=== PATIENT | female | born 1960 | race Caucasian/White ===

== ENCOUNTER 2025-02-19 10:01 | Outpatient (AMB) | payer OTHER, SELFPAY ==
[2025-02-19 10:06] VITALS: BMI 20.7
--- NOTE | 2025-02-19 10:06 | A.SPINEOV_ITS ---
Vital Signs 02/19/25 10:06 Height 5 ft 2.5 in Weight 115 lb BMI 20.7 Intake Visit Reasons: LBP down left side Intake Note: Ms. Fritz is here today c/o Low back pain that radiates down the left leg. Reserves Clerk Required: No Allergies mollusks Allergy (Severe, Verified 02/19/25 10:08) Stomach Upset Physical Exam Vital Signs: BMI result Body Mass Index 20.7 Assessment & Plan Assessment & Plan (1) Synovial cyst of lumbar facet joint: Code(s): M71.38 - Other bursal cyst, other site Category: Medical (2) Lumbar radiculopathy: Code(s): M54.16 - Radiculopathy, lumbar region Category: Medical Plan Dear colleague Thank you for referring Maggie Fritz to the office today with a chief complaint of back pain. HPI: This 64-year-old female complains of predominantly left-sided back pain and bilateral hip pain with the left is more affected than the right side. She wakes up several times a night with hip pain. Gardening biking and heavy housework increases the pain. Walking makes the symptoms better. The pain has radiated down her left leg to the top of her foot several times. The following conservative treatment options were tried without success antiinflammatories, tylenol, p physical therapy and chiropractic therapy PMH: GERD Medications: For oxygen, famotidine, as omeprazole, amitriptyline Allergies: NKDA Social history: Nonsmoker Physical Exam: Height 5'3 weight 115 lb. Straight leg raise is negative. SI provocative tests are negative. No strength and sensation. Radiological Studies: MRI done at [facility] on 01/12/2025 shows moderate L3-4 spinal stenosis and a L4-5 synovial cyst compressing the left L5 nerve root Impression/Plan: I do think this patient is symptomatic from a synovial cyst compressing the L5 nerve root. I can not explain the right-sided pain although this is less intense. She is not symptomatic from the radiological spinal stenosis at L3-4. I would like to refer for a an L5 nerve block to Dr. Goodrich . A positive result would help us in making the diagnosis. Negative result does not rule out that she is symptomatic from the L5 nerve root compression. She will return 3 weeks following the injection. Thank you for allowing me to participate in your patients care. total time spent was 50 minutes in counseling ,coordination of plan, personal review of imaging, surgical decision making and subsequent plan Jc Juarez MD, PhD Spine Fellowship Trained Neurosurgeon Director, [facility] [place] [facility] Orders: Referrals Pain Management Referral M54.16 - Radiculopathy, lumbar region, M71.38 - Other bursal cyst, other site Coding Level of Care Code New Pt Level 4 (37711) Diagnoses Synovial cyst of lumbar facet joint M71.38 Lumbar radiculopathy M54.16
--- OUTSIDE RECORDS SUMMARY | 2025-02-19 11:19 | XMS_ITS | Encounter Summary ---
Author Organization [facility] Address [address] [facility] [address] [place] [address] Phone Care Team Providers Care Manager Of It Name Role Phone Rhiannon Low Carole STUDENT SUCCESS ADVISOR Unavailable [phone] Helena Lobo SCANNING COORDINATOR Unavailable [phone] Marina Cavanaugh ELEMENTARY ART TEACHER Unavailable [phone] Angélica Salgado MD Unavailable [phone] [place] Swanson DO Primary Care Provider [phone] Encounter Details Date Type Department Care Team (Late st Contact Info) Description 10/24/2022 Procedure Pass [facility] Endoscopy Admitting Dept Virtual Department [address] [place] [address] [id number] Social History Tobacco Use Types Packs/Day Years Used Date Smoking Tobacco: Never Smokeless Tobacco: Never Alcohol Use Standard Drinks/Week Comments Not Currently 0 (1 standard drink = 0.6 oz pur e alcohol) Child or Family Care Answer Date Record ed Do you have problems with on e of the following making it difficult for you to work, study, or receive health care? No 09/21/2021 Education Answer Date Recorded Are you interested in help w ith more adult education (for example, completing high school, GED, job training, learning the Upper Sorbian language, technical skills, or developing parenting skills)? No 09/21/2021 Food Answer Date Recorded Within the past 6 months we worried whether our food would run out before we got money to buy more. Never True 09/21/2021 Within the past 6 months the food we bought just didn't last and we didn't have enough money to get more. Never True Residential Stability Answer Date Recor ded What is your housing situation today? I have more barnhart 09/21/2021 How many times have you move d in the past 12 months? Zero (I did not move) 09/21/2021 Paying for Meds Answer Date Recorded Do you have trouble paying for medicines? No 09/21/2021 Paying Utility Bills Answer Date Record ed Do you have trouble paying your heating or elect ricity bill? No 09/21/2021 Transportation Answer Date Recorded Has the lack of transportati on kept you from medical appointments or from getting medications? No 09/21/2021 Unemployment Answer Date Recorded Are you currently unemployed or working on a part-time or temporary basis, and looking for work? 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 Not on file Not on file Not on file documented as of this encounter Plan of Treatment Upcoming Encounters Date Type Department Care Team (Late st Contact Info) Description 12/09/2024 Procedure Pass [address] [place] [address] 06/22/2025 10:45 AM EST Appointment [facility], Bone Density - [address] [address] [place] Swanson, DO 234 [facility], [facility] 7 [place] [address] 07/27/2025 10:30 AM EST Appointment [facility] - [address] [place] [address] [place] Swanson, 234 [facility], [facility] 7 [place] [address] documented as of this encounter Visit Diagnoses Not on filedocumented in this encounter Care Teams Manager Of It Relationship Specialty Start Date End Date [place] Swanson DO 234 [facility] 7 [place] [address] PCP - General Family Medicine 05/02/22 Rhiannon Low, STUDENT SUCCESS ADVISOR [address] [place] [address] Historical LMR Provider 03/31/17 Helena Lobo SCANNING COORDINATOR [address] [place] [address] Historical LMR Provider 03/31/17 Marina Cavanaugh FNP [address] [place] [address] 7 [place] [address] Historical LMR Provider 03/31/17 Angélica Salgado MD [address] [place] [address] Orthopedics & Sports Medicine, [facility] [place] [address] Historical LMR Provider 03/31/17 documented as of this encounter Additional Source Comments The information contained in this document represents components of the legal health record. It is not the complete legal health record.[facility]
--- OUTSIDE RECORDS SUMMARY | 2025-02-19 11:19 | XMS_ITS | Encounter Summary ---
Author Organization [facility] Address [address] [facility] [address] [place] [address] Phone Care Team Providers Care School Psychology Specialist Name Role Phone Rhiannon Lowz NUTRITIONAL SERVICES HOST Unavailable [phone] Helena Lobo CREATIVE WRITING ENGLISH PROFESSOR Unavailable [phone] Marina Cavanaugh REGIONAL LOSS PREVENTION MANAGER Unavailable [phone] Angélica Salgado MD Unavailable [phone] [place] Swanson DO Primary Care Provider [phone] Reason for Referral * Outpatient Procedure - Closed Specialty Diagnoses / Procedures Referred By Misha t Referred To Contact Radiology Diagnoses Gastroesophageal reflux disease without esophagitis Procedures NM Gastric Emptying José Miguel Mccallum MD Phone: tel: fax: [email or web address] Referral ID Status Reason Start Date Expiration Date Visits Re quested Visits Authorized [id number] Closed 11/29/2022 11/29/2023 1 1 Encounter Details Date Type Department Care Team (Latest Contact Info) Description 11/29/2022 Transcribe Orders Virtual Department [address] [place], [place] [phone] José Miguel Mccallum MD [address] [place] [phone] [email or web address] Gastroesophageal reflux disease without esophagitis (Primary Dx) Social History Tobacco Use Types Packs/Day Years [...] high school, GED, job training, learning the Estonian language, technical skills, or developing parenting skills)? [...] your housing situation today? I have more sing 09/21/2021 How many times have you move [...] basis, and looking for work? No 09/21/2021 Digital Access Answer Date Recorded No 10/31/2022 No 10/31/2022 Reliable internet access at home? Not on file 10/31/2022 Device with a working camera? Not on file Comments No Sex and Gender Information Value [...] st Contact Info) Description 12/09/2024 Procedure Pass [address] [place] [address] 06/22/2025 10:45 AM EST Appointment [facility], [facility]ensity [address] [place] [address] [place] Swanson, DO 234 [facility], [address] [place] [address] 07/27/2025 10:30 AM EST Appointment [address] [place] [address] [place] Swanson, DO 234 [facility], [facility] 7 [place] [address] [email or web address] documented as of this encounter Results * NM GASTRIC EMPTYING SOLID PHASE (01/04/2023 12:37 PM EDT) Anatomical Region Laterality Modality Abdomen, Pelvis Nuclear Medicine 01/05/2023 1:25 AM EDT Impressions 01/05/2023 4:34 PM EDT Gastric emptying study within normal limits. Narrative 01/05/2023 4:34 PM EDT NM GASTRIC EMPTYING SOLID PHASE Radionuclide gastric emptying scan: COMPARISON: Barium swallow 10/31/2022 TECHNIQUE: 1.0 mCi technetium 99m sulphur colloid was given orally as a standard solid phase meal. Intermittent upright imaging of the abdomen was performed immediately, and at 1, 2, and 4 hours. 100% of the standardized meal was consumed. FINDINGS: Gastric emptying at 1 hr is 24 percent. Gastric emptying at 2 hrs is 58.3 percent. Gastric emptying at 4 hrs is 96.3 percent. According to accepted international standards using this technique, median normal values for emptying are: 31% at 1hr, 76% at 2hrs, and 99% at 4 hours. 5th percentile values for emptying are: 10% at 1 hr, 40% at 2hrs, and 90% at 4 hours. Procedure Note Tyrel Nichole MD - 01/05/2023 NM GASTRIC EMPTYING SOLID PHASE Radionuclide gastric emptying scan: COMPARISON: Barium swallow 10/31/2022 TECHNIQUE: 1.0 mCi technetium 99m sulphur colloid was given orally as a standardsolid phase meal. Intermittent upright imaging of the abdomen wasperformed immediately, and at 1, 2, and 4 hours. 100% of the standardizedmeal was consumed. FINDINGS: Gastric emptying at 1 hr is 24 percent. Gastric emptying at 2 hrs is 58.3percent. Gastric emptying at 4 hrs is 96.3 percent. According to accepted international standards using this technique, mediannormal values for emptying are: 31% at 1hr, 76% at 2hrs, and 99% at 4 hours. 5th percentile values for emptying are: 10% at 1 hr, 40% at 2hrs, and 90% at 4 hours. IMPRESSION: Gastric emptying study within normal limits. José Miguel Mccallum MD [facility] Final Result documented in this encounter Visit Diagnoses Diagnosis Gastroesophageal reflux disease without esophagitis- Primary Esophageal reflux Gastroesophageal reflux disease without esophagitis Esophageal reflux documented in this encounter Care Teams School Psychology Specialist Relationship Specialty Start Date End Date [place] Swanson DO [address] [place] [address], [address] [place] [address] [email or web address] PCP - General Family Medicine 05/02/22 Rhiannon Low CNP [address] [facility], 2nd [place] [address] [email or web address] Historical LMR Provider 03/31/17 Helena Lobo NP [address] [place] [address] Historical LMR Provider 03/31/17 Marina Cavanaugh FNP [address] [place] [address] [address] [place] [address] Historical LMR Provider 03/31/17 Angélica Salgado MD [address] [place] [address] Orthopedics & Sports Medicine, [facility] [place] [address] Historical LMR Provider 03/31/17 documented as of this encounter Additional Source Comments The information contained in this document represents components of the legal health record. It is not the complete legal health record.[facility]
--- OUTSIDE RECORDS SUMMARY | 2025-02-19 11:20 | XMS_ITS | Encounter Summary ---
Author Organization [facility] Address [address] [facility] [address] [place] [address] Phone Care Team Providers Care Ophthalmic Aide Name Role Phone Rhiannon Low Carole FINANCE SPECIALIST Unavailable [phone] Helena Lobo PLANT RELIABILITY ENGINEER Unavailable [phone] Marina Cavanaugh BEATER OPERATOR Unavailable [phone] Angélica Salgado MD Unavailable [phone] [place] Swanson DO Primary Care Provider [phone] Encounter Details Date Type Department Care Team (Late st Contact Info) Description 10/01/2022 Procedure Pass [facility] - [address] [place] [phone] Social History Tobacco Use Types Packs/Day Years [...] high school, GED, job training, learning the Thai language, technical skills, or developing parenting skills)? [...] st Contact Info) Description 12/09/2024 Procedure Pass [address] [place] [address] 06/22/2025 10:45 AM EST Appointment [facility], Bone Density - [address] [address] [place] Swanson, [address] [place], [address] [place] [address] 07/27/2025 10:30 AM EST Appointment [address] [place] [address] [place] Swanson, 234 [facility], [facility] 7 [place] [address] documented as of this encounter Visit Diagnoses Not on filedocumented in this encounter Additional Health Concerns Assessment Noted Time PHQ-2 Depression Total Score: 0 12/11/19 24 12:05 PM EDT documented as of this encounter Care Teams Ophthalmic Aide Relationship Specialty Start Date End Date [place] Swanson DO [address] [place] [address] 7 [place] [address] PCP - General Family Medicine 05/02/22 Rhiannon Low, FINANCE SPECIALIST [address] [place] [address], [address] [place] [address] Historical LMR Provider 03/31/17 Helena Lobo NP [address] [place] [address] Historical LMR Provider 03/31/17 Marina Cavanaugh FNP [address] [place] [address] 7 [place] [address] Historical LMR Provider 03/31/17 Angélica Salgado MD [address] [place] [address] Orthopedics & Sports Medicine, [place] [address] Historical LMR Provider 03/31/17 documented as of this encounter Additional Source Comments The information contained in this document represents components of the legal health record. It is not the complete legal health record.[facility]
--- OUTSIDE RECORDS SUMMARY | 2025-02-19 11:20 | XMS_ITS | Encounter Summary ---
Author Organization [facility] Address [address] [facility] [address] [place] [address] Phone Care Team Providers Care Bereavement Coordinator Name Role Phone Rhiannon Low Carole WEB PAGE DESIGNER Unavailable [phone] Helena Lobo SAFETY ENGINEER PRESSURE VESSELS Unavailable [phone] Marina Cavanaugh AERODYNAMICS ENGINEER Unavailable [phone] Angélica Salgado MD Unavailable [phone] [place] Swanson DO Primary Care Provider [phone] Encounter Details Date Type Department Care Team (Late st Contact Info) Description 10/23/2022 Procedure Pass [facility] Endoscopy Admitting Dept Virtual Department [address] [place] [phone] Social History Tobacco Use Types Packs/Day Years [...] high school, GED, job training, learning the Bengali language, technical skills, or developing parenting skills)? [...] st Contact Info) Description 12/09/2024 Procedure Pass [address] [place] [address] 06/22/2025 10:45 AM EST Appointment [facility], Bone Density - [address] [address] [place] Swanson, DO 234 [facility], [facility] 7 [place] [address] 07/27/2025 10:30 AM EST Appointment [facility] - [address] [place] [address] [place] Swanson, 234 [facility], [facility] 7 [place] [address] documented as of this encounter Visit Diagnoses Not on filedocumented in this encounter Care Teams Bereavement Coordinator Relationship Specialty Start Date End Date [place] Swanson DO 234 [facility] 7 [place] [address] PCP - General Family Medicine 05/02/22 Rhiannon Low, WEB PAGE DESIGNER [address] [place] [address] Historical LMR Provider 03/31/17 Helena Lobo SAFETY ENGINEER PRESSURE VESSELS [address] [place] [address] Historical LMR Provider 03/31/17 Marina Cavanaugh FNP [address] [place] [address] 7 [place] [address] Historical LMR Provider 03/31/17 Angélica Salgado MD [address] [place] [address] Orthopedics & Sports Medicine, [facility] [place] [address] Historical LMR Provider 03/31/17 documented as of this encounter Additional Source Comments The information contained in this document represents components of the legal health record. It is not the complete legal health record.[facility]
--- OUTSIDE RECORDS SUMMARY | 2025-02-19 11:20 | XMS_ITS | Encounter Summary ---
Author Organization [facility] Address [address] [facility] [address] [place] [address] Phone Care Team Providers Care Batch Roller Operator Name Role Phone Rhiannon Low Carole LAST CLEANER Unavailable [phone] Helena Lobo GLASS CURVATURE GAUGER Unavailable [phone] Marina Cavanaugh MANUFACTURING ENGINEER PAINT Unavailable [phone] Angélica Salgado MD Unavailable [phone] [place] Swanson DO Primary Care Provider [phone] Encounter Details Date Type Department Care Team (Late st Contact Info) Description 12/09/2024 Procedure Pass [facility], [address] [address] Social History Tobacco Use Types Packs/Day Years Used Date Smoking Tobacco: Never Smokeless Tobacco: Never Alcohol Use Standard Drinks/Week Comments Not Currently 0 (1 standard drink = 0.6 oz pur e alcohol) Child or Family Care Answer Date Record ed Do you have problems with on e of the following making it difficult for you to work, study, or receive health care? No 06/17/2024 Education Answer Date Recorded Are you interested in help w ith more adult education (for example, completing high school, GED, job training, learning the Martiniquais language, technical skills, or developing parenting skills)? No 06/17/2024 Are you concerned about learning? Not on file 06/17/2024 No 06/17/2024 Yes 06/17/2024 Food Answer Date Recorded Within the past 6 months we worried whether our food would run out before we got money to buy more. Never True 06/17/2024 Within the past 6 months the food we bought just didn't last and we didn't have enough money to get more. Never True Residential Stability Answer Date Recor ded What is your housing situation today? I have more sing 06/17/2024 How many times have you move d in the past 12 months? Zero (I did not move) 06/17/2024 Paying for Meds Answer Date Recorded Do you have trouble paying for medicines? No 06/17/2024 Paying Utility Bills Answer Date Record ed Do you have trouble paying your heating or elect ricity bill? No 06/17/2024 Transportation Answer Date Recorded Has the lack of transportati on kept you from medical appointments or from getting medications? No 06/17/2024 Unemployment Answer Date Recorded Are you currently unemployed or working on a part-time or temporary basis, and looking for work? No 09/21/2021 Digital Access Answer Date Recorded No 06/17/2024 Yes 06/17/2024 Do you have reliable internet access at home? Ye s 06/17/2024 Do you have a device (e.g., phone, tablet, computer) with a working camera? Yes 06/17/2024 Intimate Partner Violence Answer Date R ecorded Denied Basic Needs Not on file 06/17/2024 In the past 12 months have y ou been in a relationship with a person who hurts, threatens, or tries to control you? No 06/17/2024 Worried food would run out Not on file 06/17 In the past 12 months have y ou been in a relationship with a person who hurts, threatens, or tries to control you? No 06/17/2024 Comments No Sex and Gender Information Value [...] st Contact Info) Description 12/09/2024 Procedure Pass [facility] [address] [place] [address] 06/22/2025 10:45 AM EST Appointment [facility], Bone Density - [facility] 30 [place] [address] [place] Swanson, 234 [facility] 7 [place] [address] 07/27/2025 10:30 AM EST Appointment [facility] - [address] [place] [address] [place] Swanson, [address] [place] [address] [place] [address] documented as of this encounter Visit Diagnoses Not on filedocumented in this encounter Additional Health Concerns Assessment Noted Time PHQ-2 Depression Total Score: 2 06/17/19 25 10:37 AM EST documented as of this encounter Care Teams Batch Roller Operator Relationship Specialty Start Date End Date [place] Swanson DO [address] [place] [address] [place] [address] PCP - General Family Medicine 05/02/22 Rhiannon Low CNP [address] [place] [address], [address] [place] [address] Historical LMR Provider 03/31/17 Helena Lobo GLASS CURVATURE GAUGER [address] [place] [address] Historical LMR Provider 03/31/17 Marina Cavanaugh FNP [address] [place] [address] [email or web address] Historical LMR Provider 03/31/17 Angélica Salgado MD [address] [place] [address] Orthopedics & Sports Medicine, [place] [address] [email or web address] Historical LMR Provider 03/31/17 documented as of this encounter Additional Source Comments The information contained in this document represents components of the legal health record. It is not the complete legal health record.[facility]
--- OUTSIDE RECORDS SUMMARY | 2025-02-19 11:20 | XMS_ITS | Encounter Summary ---
Author Organization [facility] Address [address] [facility] [address] [place] [address] Phone Care Team Providers Care Transplant Immunologist Name Role Phone Rhiannon Low Carole MANAGER CLINICAL INFORMATICS Unavailable [phone] Helena Lobo PHARMACY DATA ANALYST Unavailable [phone] Marina Cavanaugh FLIGHT SIMULATOR TEACHER Unavailable [phone] Angélica Salgado MD Unavailable [phone] [place] Swanson DO Primary Care Provider [phone] Encounter Details Date Type Department Care Team (Late st Contact Info) Description 02/20/2023 Procedure Pass [facility] Endoscopy Admitting Dept Virtual Department [address] [place] [address] [phone] Social History Tobacco Use Types Packs/Day Years [...] high school, GED, job training, learning the Bulgarian language, technical skills, or developing parenting skills)? [...] st Contact Info) Description 12/09/2024 Procedure Pass [address] [place] [address] 06/22/2025 10:45 AM EST Appointment [facility], Bone Density - [facility] 30 [place] [address] [place] Swanson, DO 234 [facility], [address] [place] [address] 07/27/2025 10:30 AM EST Appointment [address] [place] [address] [place] Swanson DO 234 [facility] 7 [place] [address] documented as of this encounter Visit Diagnoses Not on filedocumented in this encounter Care Teams Transplant Immunologist Relationship Specialty Start Date End Date [place] Swanson DO 234 [facility] 7 [place] [address] PCP - General Family Medicine 05/02/22 Rhiannon Low CNP [address] [place] [address] Historical LMR Provider 03/31/17 Helena Lobo NP [address] [place] [address] Historical LMR Provider 03/31/17 Marina Cavanaugh FNP [address] [place] [address] Historical LMR Provider 03/31/17 Angélica Salgado MD [address] [place] [address] [facility] [place] [address] Historical LMR Provider 03/31/17 documented as of this encounter Additional Source Comments The information contained in this document represents components of the legal health record. It is not the complete legal health record.[facility]
--- OUTSIDE RECORDS SUMMARY | 2025-02-19 11:20 | XMS_ITS | Encounter Summary ---
Author Organization [facility] Address [address] [facility] [address] [place] [address] Phone Care Team Providers Care Public Accountant Name Role Phone Rhiannon Low Carole GLOBAL CLIMATE CHANGE ANALYST Unavailable [phone] Helena Lobo BLANKET MAKER Unavailable [phone] Marina Cavanaugh PUBLIC HEALTH CLINICAL NURSE SPECIALIST Unavailable [phone] Angélica Salgado MD Unavailable [phone] [place] Swanson DO Primary Care Provider [phone] Encounter Details Date Type Department Care Team (Late st Contact Info) Description 10/03/2022 Procedure Pass [facility] Endoscopy Admitting Dept Virtual Department [address] [place] [address] [phone] Social History Tobacco Use Types Packs/Day Years [...] high school, GED, job training, learning the Czech language, technical skills, or developing parenting skills)? [...] st Contact Info) Description 12/09/2024 Procedure Pass [address] [place] [address] 06/22/2025 10:45 AM EST Appointment [facility], Bone Density - [address] [address] [place] Swanson, DO 234 [facility], [facility] 7 [place] [address] 07/27/2025 10:30 AM EST Appointment [facility] - [address] [place] [address] [place] Swanson, 234 [facility], [facility] 7 [place] [address] documented as of this encounter Visit Diagnoses Not on filedocumented in this encounter Care Teams Public Accountant Relationship Specialty Start Date End Date [place] Swanson DO 234 [facility] 7 [place] [address] PCP - General Family Medicine 05/02/22 Rhiannon Low, GLOBAL CLIMATE CHANGE ANALYST [address] [place] [address] Historical LMR Provider 03/31/17 Helena Lobo BLANKET MAKER [address] [place] [address] Historical LMR Provider 03/31/17 Marina Cavanaugh FNP [address] [place] [address] 7 [place] [address] Historical LMR Provider 03/31/17 Angélica Salgado MD [address] [place] [address] [facility], [facility] [place] [address] Historical LMR Provider 03/31/17 documented as of this encounter Additional Source Comments The information contained in this document represents components of the legal health record. It is not the complete legal health record.[facility]
--- OUTSIDE RECORDS SUMMARY | 2025-02-19 11:20 | XMS_ITS | Encounter Summary ---
Author Organization [facility] Address [address] [facility] [address] [place] [address] Phone Care Team Providers Care Flat Bed Operator Name Role Phone Rhiannon Low Carole TUBE SIZER AND CUTTER OPERATOR Unavailable [phone] Helena Lobo REIMBURSEMENT REP Unavailable [phone] Marina Cavanaugh MIRROR SILVERER Unavailable [phone] Angélica Salgado MD Unavailable [phone] [place] Swanson DO Primary Care Provider [phone] Encounter Details Date Type Department Care Team (Late st Contact Info) Description 10/02/2022 Procedure Pass [facility] Endoscopy Admitting Dept Virtual Department [address] [place] [address] [phone] Social History Tobacco Use Types Packs/Day Years [...] high school, GED, job training, learning the Georgian language, technical skills, or developing parenting skills)? [...] st Contact Info) Description 12/09/2024 Procedure Pass [address] [place] [address] 06/22/2025 10:45 AM EST Appointment [facility], Bone Density - [address] [address] [place] Swanson, DO 234 [facility] 7 [place] [address] 07/27/2025 10:30 AM EST Appointment [facility] - [address] [place] [address] [place] Swanson, 234 [facility], [facility] 7 [place] [address] documented as of this encounter Visit Diagnoses Not on filedocumented in this encounter Care Teams Flat Bed Operator Relationship Specialty Start Date End Date [place] Swanson DO 234 [facility] 7 [place] [address] PCP - General Family Medicine 05/02/22 Rhiannon Low, TUBE SIZER AND CUTTER OPERATOR [address] [place] [address] Historical LMR Provider 03/31/17 Helena Lobo REIMBURSEMENT REP [address] [place] [address] Historical LMR Provider 03/31/17 Marina Cavanaugh FNP [address] [place] [address] 7 [place] [address] Historical LMR Provider 03/31/17 Angélica Salgado MD [address] [place] [address] [facility], [facility] [place] [place] [address] Historical LMR Provider 03/31/17 documented as of this encounter Additional Source Comments The information contained in this document represents components of the legal health record. It is not the complete legal health record.[facility]
--- OUTSIDE RECORDS SUMMARY | 2025-02-19 11:20 | XMS_ITS | Encounter Summary ---
Author Organization [facility] Address [address] [facility] [address] [place] [address] Phone Care Team Providers Care Night Coordinator Name Role Phone Rhiannon Low VOICE INTERCEPT TECHNICIAN Unavailable Darling Tolentino MD Unavailable Claudia Sterling WIRE MACHINE OPERATOR Unavailable Carole Luna DO Unavailable Helena Lobo WIRE MACHINE OPERATOR Unavailable Marina Cavanaugh ELECTRONIC FUNDS TRANSFER COORDINATOR Unavailable Sylvester Maddox MD Unavailable Amanda Brown DO Unavailable Brendon Kraft MD Unavailable Angélica Salgado MD Unavailable Josep Razo MD Unavailable Darling Tolentino MD Primary Care Provider Rhiannon Low VOICE INTERCEPT TECHNICIAN Unavailable [place] Swanson DO Primary Care Provider Rhiannon Low CNP Primary Care Provider [phone] [place] Swanson DO Primary Care Provider Encounter Details Date Type Department Care Team (Late st Contact Info) Description 05/22/2017 Ancillary Orders Virtual Department 30 [place] [address] Bharath Foster DO 766 [place] [address] [email or web address] Myalgia of pelvic floor Social History Tobacco Use Types Packs/Day Years Used Date Smoking Tobacco: Never Assessed Comments Unknown Sex and Gender Information Value Date Recorded Sex Assigned at Female 06/24/2019 7:13 PM EST Legal Sex Female 5:57 PM EST Gender Identity Female 06/24/2019 7:13 PM EST Sexual Orientation Not on file documented as of this encounter Plan of Treatment Upcoming Encounters Date Type Department Care Team (Late st Contact Info) Description 12/09/2024 Procedure Pass [address] [place] [address] 06/22/2025 10:45 AM EST Appointment [facility], [facility] 30 [place] [address] [place] Swanson, DO [address] [address] 07/27/2025 10:30 AM EST Appointment [facility] - [address] [place] [address] [place] Swanson, DO 234 [facility] 7 [place] [address] documented as of this encounter Results * XR CERVICAL SPINE 4-5 VIEWS (06/14/2017 2:20 PM EST) Anatomical Region Laterality Modality C-spine Radiographic Polly ging 06/14/2017 3:44 PM EST Impressions 06/14/2017 4:00 PM EST 1. Moderate degenerative disc and endplate changes at C5-C6. 2. Facet arthropathy at C3-C4 and C4-C5 appears moderate-severe. Moderate neuroforaminal narrowing at C3-C4 on the right and, to a slightly lesser degree C4-C5 on the right. POS - [id number] Narrative 06/14/2017 4:00 PM EST HISTORY: Cervical pain. COMPARISON: None FINDINGS: AP, lateral, bilateral foraminal and open-mouth odontoid views. Straightening of the cervical lordosis. No subluxations. Cervical lordosis is slightly reversed at the level of C4-C5. Moderate disc space narrowing and degenerative endplate changes at C5-C6. Other disc spaces are well-maintained. Very mild degenerative endplate changes at the other levels. Evidence of fairly prominent facet arthropathy at C3-C4 and C4-C5 on the right. Evidence of moderate narrowing of the right neuroforamen at C3-C4 due to facet arthropathy and small uncovertebral joint osteophytes. Similar narrowing of the right neuroforamen at C4-C5. Mild-moderate narrowing of the right neuroforamen at C5-C6 due to uncovertebral joint osteophytes and, to a lesser degree facet arthropathy. No suspicious lucencies or areas of sclerosis within the bones. Prevertebral soft tissues are normal. Procedure Note José Miguel Knight MD - 06/14/2017 HISTORY: Cervical pain. COMPARISON: None FINDINGS: AP, lateral, bilateral foraminal and open-mouth odontoid views. Straightening of the cervical lordosis. No subluxations. Cervicallordosis is slightly reversed at the level of C4-C5. Moderate disc spacenarrowing and degenerative endplate changes at C5-C6. Other disc spacesare well-maintained. Very mild degenerative endplate changes at the otherlevels. Evidence of fairly prominent facet arthropathy at C3-C4 and C4-C5on the right. Evidence of moderate narrowing of the right neuroforamen atC3-C4 due to facet arthropathy and small uncovertebral joint osteophytes.Similar narrowing of the right neuroforamen at C4-C5. Mild-moderatenarrowing of the right neuroforamen at C5-C6 due to uncovertebral jointosteophytes and, to a lesser degree facet arthropathy. No suspiciouslucencies or areas of sclerosis within the bones. Prevertebral softtissues are normal. IMPRESSION: 1. Moderate degenerative disc and endplate changes at C5-C6. 2. Facet arthropathy at C3-C4 and C4-C5 appears moderate-severe.Moderate neuroforaminal narrowing at C3-C4 on the right and, to a slightlylesser degree C4-C5 on the right. POS - [id number] Bharath Foster DO IMG XR SPINE Final Result documented in this encounter Visit Diagnoses Diagnosis Myalgia of pelvic floor Myalgia of pelvic floor documented in this encounter Additional Health Concerns Infection Onset Date Last Indicated Resolved Time CoV-Risk 01/08/2021 01/08/2021 01/18/2021 1:26 AM EDT CoV-Exposed Comment:Recent close contact documented in the Travel/Symptom Screening Form 04/06/2022 04/06/2022 04/17/2022 1:[address] documented as of this encounter Care Teams Night Coordinator Relationship Specialty Start Date End Date Darling Tolentino MD [address] [place] [address] [email or web address] PCP - General 05/09/17 06/13/17 Rhiannon Low CNP [address] [place] [address] [email or web address] PCP - Family Medicine 09/05/17 08/15/22 [place] Swanson DO [address] [place] [address] 7 [place] [address] [email or web address] PCP - General Family Medicine 11/05/19 02/18/22 Rhiannon Low CNP [address] [address] [email or web address] PCP - General Family Medicine 02/19/22 05/01/22 [place] Swanson DO [address] [place] [address] [email or web address] PCP - General Family Medicine 05/02/22 Rhiannon Low, VOICE INTERCEPT TECHNICIAN [address] [place] [address], [address] [place] [address] [email or web address] Historical LMR Provider 03/31/17 Darling Tolentino MD [address] [place] [address] [email or web address] Historical LMR Provider 03/31/17 06/17/21 Claudia Sterling NP [address] [place] [address] Historical LMR Provider 03/31/17 Carole Juarez DO [address] [place] [address] [email or web address] Historical LMR Provider 03/31/17 06/17/21 Helena Lobo NP [address] [place] [address] Historical LMR Provider 03/31/17 Marina Cavanaugh FNP [address] [place] [address] [email or web address] Historical LMR Provider 03/31/17 Sylvester Maddox MD [address] [place] [address] [place] [address] Historical LMR Provider 03/31/17 06/17/21 Amanda Brown DO 30 [place] [address] Historical LMR Provider 03/31/17 2 Brendon Kraft MD 236 [facility] 7 [place] [phone] Historical LMR Provider 03/31/17 2 Angélica Salgado MD [address] [place] [address] [facility], [facility] [place] [address] [email or web address] Historical LMR Provider 03/31/17 Josep Razo MD [address] [facility] [address] [place] [phone] [email or web address] Historical LMR Provider 03/31/17 06/17/21 documented as of this encounter Additional Source Comments The information contained in this document represents components of the legal health record. It is not the complete legal health record.[facility]
--- OUTSIDE RECORDS SUMMARY | 2025-02-19 11:20 | XMS_ITS | Encounter Summary ---
Author Organization [facility] Address [address] [facility] [address] [place] [address] Phone Care Team Providers Care Used Car Make Ready Worker Name Role Phone Rhiannon Low CNP Unavailable Darling Tolentino MD Unavailable Claudia Sterling EYEGLASS LENS GRINDER Unavailable Carole Luna DO Unavailable Helena oLbo EYEGLASS LENS GRINDER Unavailable Marina Cavanaugh GLASS CALIBRATOR Unavailable Sylvester Maddox MD Unavailable Amanda Brown DO Unavailable Brendon Kraft MD Unavailable Angélica Salgado MD Unavailable Josep Razo MD Unavailable Rhiannon Low REWINDER Unavailable [place] Swanosn DO Primary Care Provider Rhiannon Low CNP Primary Care Provider [phone] [place] Swanson DO Primary Care Provider [phone] Encounter Details Date Type Department Care Team (Late st Contact Info) Description 05/08/2021 Procedure Pass [facility] - [address] [place] [address] Social History Tobacco Use Types Packs/Day Years Used Date Smoking Tobacco: Never Smokeless Tobacco: Never Alcohol Use Standard Drinks/Week Comments Yes 0 (1 standard drink = 0.6 oz pur e alcohol) 3-4 drinks per week Child or Family Care Answer Date Record ed Do you have problems with on e of the following making it difficult for you to work, study, or receive health care? No 09/18/2018 Education Answer Date Recorded Are you interested in help w ith more adult education (for example, completing high school, GED, job training, learning the South Korean language, technical skills, or developing parenting skills)? No 09/18/2018 Food Answer Date Recorded Within the past 6 months we worried whether our food would run out before we got money to buy more. Never True 09/18/2018 Within the past 6 months the food we bought just didn't last and we didn't have enough money to get more. Never True 9 Paying for Meds Answer Date Recorded Do you have trouble paying for medicines? No 09/18/2018 Paying Utility Bills Answer Date Record ed Do you have trouble paying your heating or elect ricity bill? No 09/18/2018 Transportation Answer Date Recorded Has the lack of transportati on kept you from medical appointments or from getting medications? No 09/18/2018 Comments No Sex and Gender Information Value Date Recorded Sex Assigned at Female 06/24/2019 7:13 PM EST Legal Sex Female 5:57 PM EST Gender Identity Female 06/24/2019 7:13 PM EST Sexual Orientation Not on file documented as of this encounter Plan of Treatment Upcoming Encounters Date Type Department Care Team (Late st Contact Info) Description 12/09/2024 Procedure Pass [address] [place] [address] 06/22/2025 10:45 AM EST Appointment [facility], Bone Density - [address] [address] [place] Swanson, DO 234 [facility], [address] [place] [address] 07/27/2025 10:30 AM EST Appointment [address] [place] [address] [place] Swanson DO 234 [facility] 7 [place] [address] documented as of this encounter Visit Diagnoses Not on filedocumented in this encounter Additional Health Concerns Infection Onset Date Last Indicated Resolved Time CoV-Exposed Comment:Recent close contact documented in the Travel/Symptom Screening Form 04/06/2022 04/06/2022 04/17/2022 1:[address] documented as of this encounter Care Teams Used Car Make Ready Worker Relationship Specialty Start Date End Date Rhiannon Low CNP [address] [address] [email or web address] PCP - Family Medicine 09/05/17 08/15/22 [place] Swanson DO [address] [address] PCP - General Family Medicine 11/05/19 02/18/22 Rhiannon Low CNP [address] [address] PCP - General Family Medicine 02/19/22 05/01/22 [place] Swanson DO [address] [place] [address] 7 [place] [address] PCP - General Family Medicine 05/02/22 Rhiannon Low CNP [address] [address] Historical LMR Provider 03/31/17 Darling Tolentino MD [address] [place] [address] 7 [place] [address] [email or web address] Historical LMR Provider 03/31/17 06/17/21 Claudia Sterling NP [address] [place] [address] Historical LMR Provider 03/31/17 2 Carole Luna DO [address] [place] [address] [email or web address] Historical LMR Provider 03/31/17 06/17/21 Helena Lobo EYEGLASS LENS GRINDER [address] [place] [address] Historical LMR Provider 03/31/17 Marina Cavanaugh FNP [address] [place] [address] [email or web address] Historical LMR Provider 03/31/17 Sylvester Maddox MD [address] [place] [address] Historical LMR Provider 03/31/17 06/17/21 Amanda Brown DO [address] [place] [address] Historical LMR Provider 03/31/17 2 Brendon Kraft MD [address] [place] [address] [address] [place] [address] Historical LMR Provider 03/31/17 2 Angélica Salgado MD [address] [place] [address] [facility], [facility] [place] [address] [email or web address] Historical LMR Provider 03/31/17 Josep Razo MD 234 [facility] [address] [place] [phone] [email or web address] Historical LMR Provider 03/31/17 06/17/21 documented as of this encounter Additional Source Comments The information contained in this document represents components of the legal health record. It is not the complete legal health record.[facility]
--- OUTSIDE RECORDS SUMMARY | 2025-02-19 11:20 | XMS_ITS | Encounter Summary ---
Author Organization [facility] Address [address] [facility] [address] [place] [address] Phone Care Team Providers Care Aircraft Electrical Systems Specialist Name Role Phone Rhiannon Low Carole SHOP FITTER Unavailable [phone] Helena Lobo MANAGER BANQUET Unavailable [phone] Marina Cavanaugh TRACING LATHE SET UP OPERATOR Unavailable [phone] Angélica Salgado MD Unavailable [phone] [place] Swanson DO Primary Care Provider [phone] Encounter Details Date Type Department Care Team (Late st Contact Info) Description 02/19/2023 Procedure Pass [facility] Endoscopy Admitting Dept Virtual Department [address] [place] [address] [phone] Social History Tobacco Use Types Packs/Day Years [...] high school, GED, job training, learning the Maori language, technical skills, or developing parenting skills)? [...] st Contact Info) Description 12/09/2024 Procedure Pass [address] [place] [address] 06/22/2025 10:45 AM EST Appointment [facility], Bone Density - [facility] 30 [place] [address] [place] Swanson, DO 234 [facility], [address] [place] [address] 07/27/2025 10:30 AM EST Appointment [address] [place] [address] [place] Swanson DO 234 [facility] 7 [place] [address] documented as of this encounter Visit Diagnoses Not on filedocumented in this encounter Care Teams Aircraft Electrical Systems Specialist Relationship Specialty Start Date End Date [place] Swanson DO 234 [facility] 7 [place] [address] PCP - General Family Medicine 05/02/22 Rhiannon Low CNP [address] [place] [address] Historical LMR Provider 03/31/17 Helena Lobo NP [address] [place] [address] Historical LMR Provider 03/31/17 Marina Cavanaugh FNP [address] [place] [address] Historical LMR Provider 03/31/17 Angélica Salgado MD [address] [place] [address] [facility] [place] [address] Historical LMR Provider 03/31/17 documented as of this encounter Additional Source Comments The information contained in this document represents components of the legal health record. It is not the complete legal health record.[facility]
--- OUTSIDE RECORDS SUMMARY | 2025-02-19 11:20 | XMS_ITS | Clinical Summary ---
Author Organization [facility] Address [address] [facility] [address] [place] [phone] Phone Care Team Providers Care Core Microarchitect Name Role Phone Rhiannon Low Carole PLASTERER FOREMAN Unavailable Helena Lobo PRESSING MACHINE OPERATOR Unavailable Marina Cavanaugh ORDER CONTROL CLERK BLOOD BANK Unavailable Angélica Salgado MD Unavailable [place] Swanson DO Primary Care Provider [phone] Allergies Active Allergy Reactions Criticality Noted Date Comments Fish Derived 06/24/2019 Medications esomeprazole (NEXIUM) 40 MG capsule Take 40 mg by mouth daily before breakfast. Active famotidine (PEPCID) 40 MG tabletIndication s:Gastroesophage al reflux disease without esophagitis TAKE 1 TABLET BY MOUTH EVERY DAY 90 tablet 3 10/22/2022 Active FLUoxetine (PROZAC) 40 MG capsuleIndicatio ns:Mild episode of recurrent major depressive disorder Take 1 capsule (40 mg total) by mouth every morning. 90 capsule 1 03/09/2024 Active LORazepam (ATIVAN) 0.5 MG tabletIndication s:Other insomnia Take 1 tablet (0.5 mg total) by mouth nightly at bedtime as needed for anxiety. 20 tablet 04/30/2024 Active SUMAtriptan (IMITREX) 50 MG tabletIndication s:Migraine TAKE 1 TABLET AT ONSET OF HEADACHE. MAY REPEAT DOSE ONCE AFTER 2 HOURS IF NEEDED. 9 tablet 3 06/11/2024 Active Active Problems Problem Noted Date Diagnosed Date Chronic midline low back pain without sciatica 0 12/09/2024 Assessment & Plan (12/09/2024 5:34 PM EDT): Maggie presents for ongoing low back pain with pain rating into the groin and numbness of the tops of her feet intermittently. My concern is pressure getting placed against her nerves thus I ordered an MRI to further investigate this. She has undergone physical therapy without improvement. She is also interested in seeing Dr. Juarez-a community development specialist. I placed this referral today. I informed her to call if there are any other issues or concerns or if this gets worse. She understands and agrees. I have maintained a long-term relationship with the patient, overseeing the care of their lumbar radiculopathy. This has significantly influenced my decision-making and treatment plans during today's encounter. Screening for condition 08/17/2024 Assessment & Plan (08/17/2024 11:11 AM EDT): Maggie is due for bone density screening-I ordered this today and I will update her with the result. Follow-up in June for her next CPE. Routine medical exam 06/17/2024 Assessment & Plan (06/17/2024 11:45 AM EST): Maggie Fritz is a 63 y.o. year old female presenting for her annual physical exam. I reviewed the adult health update-electronic questionnaire. she will go for her above lab work and I will update her with the results. she has a healthy diet and I gave guidance to try and improve her exercise regimen. she will follow up in a year for their annual physical exam. she understands and agrees. Need for prophylactic vaccin ation against Streptococcus pneumoniae (pneumococcus) 06/17/2024 Assessment & Plan (06/17/2024 11:45 AM EST): Maggie is due for a pneumonia booster-she was in agreement with this. This is given today in the office. No complications. She was appreciative. Pain in joint, multiple sites 04/30/2024 Assessment & Plan (04/30/2024 11:15 AM EST): Maggie has joint pains-mainly lower extremities. I referred her to physical therapy-she was requesting to be seen by Joe-I placed this referral today. I informed her to call if there are any other issues or concerns or if this gets worse. She understands and agrees. Need for prophylactic vaccin ation and inoculation against influenza 04/30/2024 Assessment & Plan (04/30/2024 11:15 AM EST): Maggie is due for a flu vaccine-she was in agreement with getting this done today in the office. This is given today in the office. No complications. She was appreciative. Need for Tdap vaccination 04/30/2024 Assessment & Plan (04/30/2024 11:15 AM EST): Maggie is due for a Tdap vaccine-she was in agreement with getting this done today in the office. This is given today in the office. No complications. She was appreciative. Laboratory examination order ed as part of a routine general medical examination 04/30/2024 Assessment & Plan (04/30/2024 11:15 AM EST): Maggie is due for labs prior to her next CPE. I ordered these today and I will update her with the results. Other insomnia 04/30/2024 Assessment & Plan (04/30/2024 11:14 AM EST): Maggie notes that she will be traveling this winter and she is asking for something for sleep. I wrote for Ativan-to be taken as needed. She will call if there are any other issues or concerns. She understands and agrees. Gastroesophageal reflux dise ase with esophagitis without hemorrhage 09/17/2022 Assessment & Plan (04/30/2024 11:14 AM EST): Maggie presents for follow-up regarding GERD-I reviewed her most recent EGD- this late summer. She is currently on Nexium and Pepcid. She is avoiding the foods that she should be avoiding and she is eating the food that she should be eating. Overall stable symptoms. I informed her to call if this gets worse or if there are any other issues or concerns. She understands and agrees. Assessment & Plan (09/17/2022 3:49 PM EDT): This is a 62-year-old woman who has gastroesophageal reflux disease refractory to multiple proton pump inhibitors and H2 blockers as well as positioning changes and watching her diet. The patient had an endoscopy that does not document a hiatal hernia. She is scheduled for manometry and a barium swallow has not been ordered. I ordered the barium swallow and I reviewed all of her records from the lead operator including her most recent endoscopy. The patient and I discussed the possibility of surgical intervention which would include a hiatal hernia repair with or without fundoplication if indicated by the studies that have not been completed. I discussed risk benefits and alternatives. The patient denies will have another discussion once we have the results of the studies and determine what is best for her surgically. I spent 54 minutes with this patient which included documentation. Back spasm 08/09/2022 Assessment & Plan (08/09/2022 10:40 PM EST): Discussed various options for treatment for patient's midline back pain that extends bilaterally in the lower back. Offered patient the choice between muscle relaxers, physical therapy and imaging of the back. Patient chose to pursue physical therapy at this time as she fears that the muscle relaxers would be too sedating and I felt that imaging would not change her course of treatment. Patient will follow-up with PCP in 4 to 6 weeks after completing physical therapy if the problem persists. I also advised patient to drink more water as back spasms are related to dehydration. Gastroesophageal reflux disease without esophagi tis 08/12/2019 Overview (10/01/2022): EGD 04/2022. Normal pathology. Patulous LES Assessment & Plan (12/11/2023 12:10 PM EDT): Maggie continues to have acid reflux symptoms-worse at night. She is taking her antacids as directed by her GI doctor. She is sleeping with an elevated head and sometimes sleeps in the recliner when her symptoms are bad. I advised her to increase her water intake before bedtime to see if this helps. She will see Dr. Mccallum in February- 2 months-I would recommend a repeat endoscopy for further investigation of Bermudez's as her last endoscopy was in 2021-pathology shows no Bermudez's. She will continue with a GERD friendly diet-I informed her to call if there are any other issues or concerns. Follow-up: 3 months for her CPE. She understands and agrees. Assessment & Plan (10/01/2022 11:35 AM EDT): She is considering surgery for patulous lower esophageal sphincter. Her symptoms are not controlled on PPI (she is trialed several) plus H2 jess plus antacids. She has significantly modified her diet. She does tell me that she has a gum chewer and I recommend she stop that. She is already elevated the head of her bed. She is scheduled for manometry and barium swallow and then will follow-up with surgery Did discuss that SSRIs can cause dyspepsia although I have never seen it to this degree. I am skeptical that it is contributing but she could certainly consider lowering the fluoxetine dose back to 60 mg to see if it makes a difference. If she decides to do so she will follow-up with one of my colleagues since I am departing the practice next month Assessment & Plan (08/09/2022 10:38 PM EST): Encourage patient to follow-up with her PCP to discuss this issue further. Advised her to increase her Nexium from 40 mg once a day to 40 mg twice a day. She has had an EGD in the past that was equivocal for Bermudez's esophagus although her latest one in 2019 shows no evidence of dysplasia in the esophagus. Assessment & Plan (01/01/2022 5:03 PM EDT): Maggie presents with ongoing acid reflux symptoms despite taking omeprazole. I advised her to stop the omeprazole and to start on Pepcid today-I wrote the prescription today and sent this to her pharmacy. I will also have her go for an H. pylori test to rule out H. pylori. She is already following a GERD friendly diet. I advised her to drink water before going to bed and to not eat a meal 2 hours prior to going to bed. She does have an appointment with GI already and she will follow- up with them as directed. She will call if things get worse or if there are any other issues or concerns. She understands and agrees with this plan. Assessment & Plan (09/21/2021 10:40 AM EDT): She wishes to restart omeprazole because she is quite symptomatic off of it, even with famotidine. She feels she cannot modify her diet further. We reviewed risks and benefits of omeprazole. She will restart it. Assessment & Plan (05/08/2021 12:13 PM EST): We discussed stopping triggers, trying to taper off omeprazole & use H2 jess instead due to concerns about superintendent marine oil terminal side effects of PPI Assessment & Plan (08/12/2019 11:24 AM EST): Diet discussed. 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 Assessment & Plan (10/01/2022 11:36 AM EDT): Stable on prozac 80 mg Assessment & Plan (09/21/2021 10:40 AM EDT): Continue Prozac 80 mg Assessment & Plan (05/08/2021 12:13 PM EST): Encouraged her to resume therapy. We will increase fluoxetine to 80 mg. Fu 3 mos Assessment & Plan (09/07/2020 11:19 AM EDT): Stable, continue prozac Assessment & Plan (08/12/2019 11:24 AM EST): Increase prozac to 60 mg qd. Given info re finding therapist. FU 3 months or sooner if problems Assessment & Plan (09/18/2018 10:51 AM EDT): Continue Prozac. Also discussed mindfulness Trochanteric bursitis of both hips 09/18/2018 Assessment & Plan (09/07/2020 11:18 AM EDT): Recommend stretches for IT band before & after exercise. Referred to PT Assessment & Plan (09/18/2018 10:51 AM EDT): Continue physical therapy. Continue consider steroid injection if not improving. Chronic right-sided low back pain without sciati ca 02/19/2018 Assessment & Plan (09/18/2018 10:51 AM EDT): Continue PT Migraine 11/14/2017 Assessment & Plan (10/01/2022 11:36 AM EDT): Stable Assessment & Plan (09/21/2021 10:41 AM EDT): She is off of gabapentin by her choice. She is having about 3 migraines per month and is tolerating these well. Assessment & Plan (05/08/2021 12:12 PM EST): Stable, continue current dose of gabapentin Assessment & Plan (09/07/2020 11:19 AM EDT): Stable. She is going to try decreasing gabapentin to 100 mg QD Assessment & Plan (08/12/2019 11:24 AM EST): stable Assessment & Plan (11/14/2017 1:15 PM EDT): Continue current dose of gabapentin and Imitrex. Continue PT and emergency care attendant for chronic neck pain Chronic neck pain 08/27/2005 Overview (08/12/2019): Chronic; migrainous Assessment & Plan (09/21/2021 10:40 AM EDT): She discontinued gabapentin and is doing okay Assessment & Plan (05/08/2021 12:13 PM EST): Stable. Continue gabapentin Assessment & Plan (09/07/2020 11:19 AM EDT): She is going to try decreasing gabapentin to 100 mg QD. She requests more PT Assessment & Plan (08/12/2019 11:25 AM EST): stable Resolved Problems Problem Noted Date Diagnosed Date Resolved Date Pain of right thumb 08/17/2024 12/10/19 Assessment & Plan (08/17/2024 11:11 AM EDT): Maggie presents for ongoing right thumb pain-getting worse. She was seen by Ortho in the past who gave her a wrist splint but this was about a year ago. The pain has gotten worse. I ordered an x-ray to further investigate the joint and I will update her with the results. I gave her guidance that she can take Tylenol and use heat to the site as needed. I gave her exercises the front to start on. Also put a referral into [facility] for a consult. She was appreciative. She will call if there are any other issues or concerns. She understands and agrees. Encounters Date Type Department Care Team Description 01/12/2025 9:01 AM EDT - 01/12/2025 11:59 PM EDT Hospital Encounter [facility] [address] [place] [address] [place] Swanson, DO Discharge Disposition: Home or Self Care 12/09/2024 5:00 PM EDT Office Visit [facility] [address] [place] [address] [place] Swanson, DO Chronic midline low back pain without sciatica (Primary Dx); Screening for condition 12/09/2024 Procedure Pass [facility] [address] [place] [address] 12/07/2024 10:15 AM EDT Office Visit [facility] [address] [place] [id number] Dora Ferraro MD Trigger finger of right thumb (Primary Dx); Arthritis of carpometacarpal (CMC) joint of right thumb 12/03/2024 Telephone [facility] [address] [place], [place] [id number] [place] Swanson DO Triage (Back pain ) from Last 3 Months Immunizations Immunization Administration Dates Next Due COVID-19 (Pre-04/01) Pfizer Vaccine, mRNA, PF 10/01/2020,09/10/2020 INFLUENZA, SPLIT VIRUS, TRIVALENT PF 04/30/2024 INFLUENZA, SPLIT VIRUS, TRIV ALENT W/ PRESERVATIVE IM 03/20/2011 Influenza Quadrivalent MDCK Preservative Free IM 05/31/2023,04/16/2022,06/16/2019 Influenza Quadrivalent Prese rvative Free IM 05/08/2021,05/19/2020,04/14/2020,2017,02/21/2017,05/16/2016 Influenza Quadrivalent w/ Preservative IM 03/29/2015 Influenza trivalent preserva tive free intradermal 04/06/2014,03/30/2013 Influenza, Unspecified Formulation 06/16/2019 Pneumococcal conjugate PCV20 06/17/2024 Tdap 04/30/2024,11/24/2013 Zoster recombinant 10/01/2022,11/06/2019 Family History Medical History Relation Comments Sleep apnea Brother 1 No Known Problems Daughter Dementia Father Kidney disease Father Alzheimer's disease Mother Breast cancer Mother Relation Status Comments Brother 1 Alive Brother 2 Alive Daughter Alive Father Mother Sister Alive Social History Tobacco Use Types Packs/Day Years Used Date Smoking Tobacco: Never Smokeless Tobacco: Never Tobacco Cessation:Counseling Given: Not Answered Alcohol Use Standard Drinks/Week Comments Not Currently [...] high school, GED, job training, learning the Spanish language, technical skills, or developing parenting skills)? [...] file Not on file Not on file Last Filed Vital Signs Vital Sign Reading Time Taken Comments Blood Pressure 94/60 12/09/2024 5:08 PM EDT Pulse 70 12/09/2024 5:08 PM EDT Temperature 36.2 C (97.1 F) 08/17/2024 10:58 AM EDT Respiratory Rate 16 01/08/2021 12:33 PM EDT Oxygen Saturation 98% 12/09/2024 5:08 PM EDT Inhaled Oxygen Concentration - - Weight 50.8 kg (112 lb) 01/11/2025 10:23 AM EDT Height 158.8 cm (5' 2.5 ) 01/11/2025 10:23 AM ED T Body Mass Index 20.16 01/11/2025 10:23 AM EDT Plan of Treatment Upcoming Encounters Date Type Department Care Team (Late st Contact Info) Description 12/09/2024 Procedure Pass [facility] - [address] [place] [address] 06/22/2025 10:45 AM EST Appointment [facility], Bone Density - [address] [address] [place] Swanson, [address] [facility] [address] [place] [id number] 07/27/2025 10:30 AM EST Appointment [facility] - [address] [place] [address] [place] Swanson DO [address] [facility] [address] [id number] Health Maintenance Due Date Last Done Comments COLOGUARD 2004 FIT TEST 2004 FOBT 2004 SIGMOIDOSCOPY 2004 VIRTUAL COLONOSCOPY 2004 OSTEOPOROSIS SCREENING INITIAL (ONE-TIME) 2024 INFLUENZA VACCINE (#1) 2025 , 05/31/2023, 04/16/2022, Additional history exists MAMMOGRAM 02/02/2025 02/03/2024, 06/10, 12/02/2018, Additional history exists COVID-19 VACCINE ( season) 2025 05/13/2024, 05/31/2023, 04/16/2022, Additional history exists DEPRESSION SCREENING 06/17/2025 06/17/2024 COLONOSCOPY 09/07/2027 01/13/2024, 09/06/2017 COLORECTAL CANCER SCREENING 09/07/2027 LIPID PANEL 07/02/2029 07/02/2024, 02/08, 02/21/2017, Additional history exists PAP SMEAR 11/09/2029 11/09/2024, 09/2019, 08/12/2019, Additional history exists Adult Td,Tdap Booster 04/30/2034 04/30/2024, 014 RSV VACCINE (1 - 1-dose 75+ series) 2034 HEPATITIS C SCREENING Completed 12/07/2015 ZOSTER VACCINES Completed 10/01/2022, 11/06/2019 PNEUMOCOCCAL VACCINES (50+ years) Completed 06/17/2024 SMOKING STATUS SCREENING (Once After 26 Yrs) Completed 12/07/2024 HEPATITIS A VACCINES Aged Out No long er eligible based on patient's age to complete this topic HIB VACCINES Aged Out No longer eligi ble based on patient's age to complete this topic MENINGOCOCCAL VACCINES (ACWY) Aged Out No longer eligible based on patient's age to complete this topic MENINGOCOCCAL VACCINES (B) Aged Out N o longer eligible based on patient's age to complete this topic Medical Devices Not on file Procedures Procedure Name Priority Date/Time Associated Diagnosis Comments MRI LUMBAR SPINE (NEURO) WITHOUT CONTRAST Routine 01/12/2025 9:47 AM EDT Chronic midline low back pain without sciatica PAP TEST Routine 11/09/2024 12:00 AM EDT LIPID PANEL Routine 07/02/2024 10:02 AM EST Laboratory examination ordered as part of a routine general medical examination BI MAMMOGRAM SCREENING WITH TOMOSYNTHESIS WITH CAD (BILATERAL) Routine 02/03/2024 10:49 AM EDT Encounter for screening mammogram for malignant neoplasm of breast HM COLONOSCOPY FOR RESULT ENTRY ONLY Routine 01/13/2024 OUTSIDE HEPATITIS C VIRUS SCREENING Routine 12/07/2015 from Last 3 Months or Most Recently Relevant to Health Maintenance Results * MRI LUMBAR SPINE (NEURO) WITHOUT CONTRAST (01/12/2025 9:47 AM EDT) Anatomical Region Laterality Modality L-spine Magnetic Resonan ce 01/12/2025 3:51 PM EDT Impressions 01/12/2025 4:00 PM EDT 1. 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 Attention to the spine labeling is recommended if any surgical intervention is planned. 2. A 0.5 x 0.3 cm synovial cyst associated with the left facet joint at L5-S1 extending into the left lateral spinal canal, resulting in narrowing of the left lateral recess and possibly impinging on the traversing left S1 nerve root. Clinical correlation for left S1 neuropathy is recommended. 3. Additional degenerative disc disease changes of the lumbar spine as detailed above, with moderate spinal canal stenosis at L4-L5. Varying degrees of bilateral neural foramina narrowing as above. Narrative 01/12/2025 4:00 PM EDT MRI LUMBAR SPINE (NEURO) WITHOUT CONTRAST Referring clinician's provided indication for this examination in Epic: * Lumbar radiculopathy, > 6 wks; no improvement with PT. numbness of the feet at times. for an MRI- R/O nerve compression TECHNIQUE: MRI LUMBAR SPINE (NEURO) WITHOUT CONTRAST Multi-sequence, multi-planar MRI of the lumbar spine was performed without intravenous contrast. COMPARISON: XR LUMBAR SPINE ; CT ABDOMEN/PELVIS WITH CONTRAST FINDINGS: LUMBAR SPINE: Lumbosacral Transitional Anatomy: There is transitional lumbosacral junction with lumbarization of S1. The lower most fully developed intervertebral disc space is labeled as S1-S2 for dictation purposes. The lower most rib bearing vertebral body is labeled as T12. Attention to the spine labeling is recommended if any surgical intervention is planned. Alignment and Vertebrae: There is normal lumbar lordosis. There is 2 mm retrolisthesis of L5 on S1. Vertebral body heights are maintained without evidence of compression fracture. Marrow: No focal aggressive osseous lesions are identified. Discs and Endplates: There is disc desiccation and disc height loss at L4-L5 and L5-S1. Conus: Conus medullaris terminates at L2. The cauda equina nerve roots appear unremarkable. Soft Tissues: The visualized retroperitoneum is unremarkable. Other Findings: The paraspinal musculature is unremarkable. Findings by level: T12-L1: No spinal or foraminal stenosis. L1-L2: No spinal or foraminal stenosis. L2-L3: No spinal or foraminal stenosis. L3-L4: No spinal or foraminal stenosis. L4-L5: There is diffuse disc bulge with bilateral facet hypertrophy and ligamentum flavum thickening, resulting in moderate spinal canal stenosis and [id number] bilateral neural foramina narrowing. L5-S1: There is mild diffuse disc bulge with bilateral facet hypertrophy. Additionally, there is a 0.5 x 0.3 cm synovial cyst associated with the left facet joint extending into the left lateral spinal canal (series 5, image 30), resulting in narrowing of the left lateral recess and possibly impinging on the traversing left S1 nerve root. No significant spinal canal stenosis is seen at this level. There is moderate bilateral neural foramina narrowing. S1-S2: No significant spinal canal stenosis or neural foramina narrowing. Procedure Note Eduardo Almeida MD - 01/12/2025 MRI LUMBAR SPINE (NEURO) WITHOUT CONTRAST Referring clinician's provided indication for this examination in Epic: *Lumbar radiculopathy, > 6 wks; no improvement with PT. numbness of thefeet at times. for an MRI- R/O nerve compression TECHNIQUE: MRI LUMBAR SPINE (NEURO) WITHOUT CONTRAST Multi-sequence, multi-planar MRI of the lumbar spine was performed withoutintravenous contrast. COMPARISON: XR LUMBAR SPINE ; CT ABDOMEN/PELVIS WITH [id number] FINDINGS: LUMBAR SPINE: Lumbosacral Transitional Anatomy: There is transitional lumbosacraljunction with lumbarization of S1. The lower most fully developedintervertebral disc space is labeled as S1-S2 for dictation purposes. Thelower most rib bearing vertebral body is labeled as T12. Attention to thespine labeling is recommended if any surgical intervention is planned. Alignment and Vertebrae: There is normal lumbar lordosis. There is 2 mmretrolisthesis of L5 on S1. Vertebral body heights are maintained withoutevidence of compression fracture. Marrow: No focal aggressive osseous lesions are identified. Discs and Endplates: There is disc desiccation and disc height loss atL4-L5 and L5-S1. Conus: Conus medullaris terminates at L2. The cauda equina nerve rootsappear unremarkable. Soft Tissues: The visualized retroperitoneum is unremarkable. Other Findings: The paraspinal musculature is unremarkable. Findings by level: T12-L1: No spinal or foraminal stenosis. L1-L2: No spinal or foraminal stenosis. L2-L3: No spinal or foraminal stenosis. L3-L4: No spinal or foraminal stenosis. L4-L5: There is diffuse disc bulge with bilateral facet hypertrophy andligamentum flavum thickening, resulting in moderate spinal canal stenosisand nocw-[id number]-[id number] bilateral neural foramina narrowing. L5-S1: There is mild diffuse disc bulge with bilateral facet hypertrophy.Additionally, there is a 0.5 x 0.3 cm synovial cyst associated with theleft facet joint extending into the left lateral spinal canal (series 5,image 30), resulting in narrowing of the left lateral recess and possiblyimpinging on the traversing left S1 nerve root. No significant spinalcanal stenosis is seen at this level. There is moderate bilateral neuralforamina narrowing. S1-S2: No significant spinal canal stenosis or neural foraminanarrowing. IMPRESSION: 1. 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 Attentionto the spine labeling is recommended if any surgical intervention isplanned. 2. A 0.5 x 0.3 cm synovial cyst associated with the left facet joint atL5-S1 extending into the left lateral spinal canal, resulting in narrowingof the left lateral recess and possibly impinging on the traversing leftS1 nerve root. Clinical correlation for left S1 neuropathy isrecommended. 3. Additional degenerative disc disease changes of the lumbar spine asdetailed above, with moderate spinal canal stenosis at L4-L5. Varyingdegrees of bilateral neural foramina narrowing as above. Winston Swanson DO IMG MR XSPECIALTY Final Result * Pap Test (11/09/2024 12:00 AM EDT) 11/09/2024 11/10/2024 10: 14 AM EDT Narrative SEE NARRATIVE - 11/16/2024 1:50 PM EDT [address] [address] [employer]: Josep Mancera MD COMMUNITY RESOURCE OFFICER Cytology Report FINAL DIAGNOSIS A. PAP SMEAR (THIN PREP) CE: SPECIMEN ADEQUACY: Satisfactory for evaluation; transformation zone present. Evaluation limited by scant cellularity. INTERPRETATION: NEGATIVE FOR INTRAEPITHELIAL LESION OR MALIGNANCY. Atrophy. This specimen was analyzed by the automated ThinPrep Imaging System ([employer] and the selected williamson were reviewed by a manager decision support. Electronically Signed Out By: KAIN Thompson(ASCP) The Pap test is a screening test primarily for squamous cancers and precursors and has associated false-negative and false-positive results. New technologies such as liquid-based preparations may decrease but will not eliminate all false-negative results. Regular sampling and follow-up of unexplained clinical signs and symptoms are recommended to minimize false negative results. PROCEDURES/ADDENDA HPV Testing (Requested) Ordered Date: 11/10/2024 A. PAP SMEAR (THIN PREP) CE: High-risk HPV Panel w/ extended genotyping NEG HPV 16-NEG HPV 18-NEG HPV 45-NEG HPV 33/58-NEG HPV 31-NEG HPV 56/59/66-NEG HPV 51-NEG HPV 52-NEG HPV 35/39/68-NEG Performed by real-time polymerase chain reaction (PCR) at [facility], [address] [place] [address] using the FDA-approved [employer] Onclarity HPV Assay with extended genotyping. Uses of the assay in scenarios other than those approved by the FDA should be considered off-label use. The accuracy and precision of this test for all other off-label specimen sources has been verified in the Cytopathology Laboratory of the [facility] and has not been cleared or approved by the U.S. Food and Drug Administration. Clinical correlation is advised. The assay assesses the E6/E7 DNA target and utilizes human beta globin as an internal control. Cytology and HPV testing are screening assays and should not be used as the sole means of detecting cancer. False-positives and false-negatives can occur. CLINICAL HISTORY Date of Last Menstrual Period: Not Provided Menstrual History: Post Menopausal Other Clinical Conditions: Screening Pap SPECIMEN SOURCE A: PAP SMEAR (THIN PREP) CE Patient Name: MAGGIE FRITZ : 1960 (Age: 64) Sex: F Institution: [facility] Location: [facility] Date of Collection: 11/09/2024 Date of Reported: 11/16/2024 13:50 Results to: Loraine Baker MD us Loraine Baker MD CYTOLOGY ORDERABLES Final Resu lt SEE NARRATIVE * (ABNORMAL) Lipid panel (07/02/2024 10:02 AM EST) HDL 64 mg/dL [facility] Comment: Interpretation <40 mg/dL: Low HDL cholesterol (major risk factor for CHD) Greater than or equal to 60 mg/dL: High HDL cholesterol ( negative risk factor for CHD) HDL - cholesterol is affected by a number of factors, e.g. smoking, excerise, hormones, sex and age. CHOLESTEROL 196 0 - 240 mg/dL [facility] TRIGLYCERIDES 86 30 - 160 mg/dL [facility] LDL 115 50 - 129 mg/dL [facility] Comment: LDL levels in terms of risk for coronary heart disease: <100 mg/dL: Optimal 100-129 mg/dL: Near or above optimal 130-159 mg/dL: Borderline high 160-189 mg/dL: High >190 mg/dL: Very High CARDIAC RISK RATIO 3.1(L) 3.3 - 4.4 C [facility] Blood 07/02/2024 10:0 2 AM EST 07/02/2024 10:08 AM EST [place] Swanson DO LAB BLOOD ORDERABLES Final Resul t [facility] [address] [place] [address] * BI MAMMOGRAM SCREENING WITH TOMOSYNTHESIS WITH CAD (BILATERAL) (02/03/2024 10:49 AM EDT) Anatomical Region Laterality Modality Breast Left, Breast Right, Breast Bilateral Bila teral Mammography 02/03/2024 3:41 PM EDT Impressions 02/03/2024 3:43 PM EDT No mammographic evidence of malignancy in either breast. Annual screening mammography is recommended. BI-RADS 1 NEGATIVE The patient will be notified of the results and recommendations. Narrative 02/03/2024 3:43 PM EDT BI MAMMOGRAM SCREENING WITH TOMOSYNTHESIS WITH CAD (BILATERAL) Additional patient information: Screening. COMPARISON: Comparison is made with relevant prior imaging. Breast composition: The breast tissue is heterogeneously dense which may obscure small masses. FINDINGS: No abnormal masses, suspicious calcifications, or other significant findings are identified mammographically in either breast. There has been no interval change. Rhiannon Low PLASTERER FOREMAN IMG MG EXAMS Final Resu lt * COLONOSCOPY FOR RESULT ENTRY ONLY (01/13/2024) Colonoscopy 10 years Historical Provider HEALTH MAINTENANCE Final Result * Outside Hepatitis C Virus Screening (12/07/2015) Pathologist [facility] Hepatitis C Screening - External Neg Historical Provider LAB BLOOD ORDERABLES [place] Result from Last 3 Months or Most Recently Relevant to [place] [id number] [facility] MEDICARE HMO REPLACEMENT MEDICARE PART A & [place] [address] [facility] MEDICARE HMO REPLACEMENT MEDICARE PART A & B [facility] MEDICARE HMO REPLACEMENT MEDICARE PART A & B [facility] [place] MEDICARE HMO REPLACEMENT MEDICARE PART A & B [facility] MEDICARE HMO REPLACEMENT MEDICARE PART A & B [facility] MEDICARE HMO REPLACEMENT MEDICARE PART A & [place] [id number] [place] [address] [place] [address] Care Teams Core Microarchitect Relationship Specialty Start Date End Date Winston Swanson DO [address] [place] [address], [address] [place] [address] [email or web address] PCP - General Family Medicine 05/02/22 Rhiannon Low CNP [address] [place] [address], 2nd [place] [address] Historical LMR Provider 03/31/17 Helena Lobo NP [address] [place] [address] Historical LMR Provider 03/31/17 Marina Cavanaugh FNP [address] [place] [address] 7 [place] [address] [email or web address] Historical LMR Provider 03/31/17 Angélica Salgado MD [address] [place] [address] [facility] Medicine, [place] [address] [email or web address] Historical LMR Provider 03/31/17 Additional Source Comments The information contained in this document represents components of the legal health record. It is not the complete legal health record.[facility]
--- OUTSIDE RECORDS SUMMARY | 2025-02-19 11:20 | XMS_ITS | Encounter Summary ---
Author Organization [facility] Address [address] [facility] [address] [place] [address] Phone Care Team Providers Care Sheep Boner Name Role Phone Rhiannon Low BINDER LOCKSTITCH Unavailable Helena Lobo NP Unavailable [phone] Marina Cavanaugh COMPLIANCE SPECIALIST Unavailable Angélica Salgado MD Unavailable Rhiannon Low BINDER LOCKSTITCH Unavailable [phone] Rhiannon Low BINDER LOCKSTITCH Primary Care Provider [phone] Winston Swanson DO Primary Care Provider Encounter Details Date Type Department Care Team (Late st Contact Info) Description 04/10/2022 Procedure Pass [facility] Endoscopy Admitting Dept Virtual Department [address] [place] [address] Social History Tobacco Use Types Packs/Day Years [...] high school, GED, job training, learning the Armenian language, technical skills, or developing parenting skills)? [...] st Contact Info) Description 12/09/2024 Procedure Pass [address] [place] [address] 06/22/2025 10:45 AM EST Appointment [facility], Bone Density - [facility] [address] [place] [address] Winston Swanson, [address] [facility], [address] [email or web address] 07/27/2025 10:30 AM EST Appointment [facility] - [address] [place] [address] [place] Swanson DO [address] [facility] 7 [place] [address] [email or web address] documented as of this encounter Visit Diagnoses Not on filedocumented in this encounter Additional Health Concerns Infection Onset Date Last Indicated Resolved Time CoV-Exposed Comment:Recent close contact documented in the Travel/Symptom Screening Form 04/06/2022 04/06/2022 04/17/2022 1:[address] documented as of this encounter Care Teams Sheep Boner Relationship Specialty Start Date End Date Rhiannon Low CNP [address] [place] [address] [email or web address] PCP - Family Medicine 09/05/17 08/15/22 Rhiannon Low CNP [address] [place] [address] PCP - General Family Medicine 02/19/22 05/01/22 [place] Swanson DO [address] [place] [address] [email or web address] PCP - General Family Medicine 05/02/22 Rhiannon Low CNP [address] [place] [address] [email or web address] Historical LMR Provider 03/31/17 Helena Lobo STAFFING ANALYST [address] [place] [address] Historical LMR Provider 03/31/17 Marina Cavanaugh FNP [address] [place] [address] Historical LMR Provider 03/31/17 Angélica Salgado MD [address] [place] [address] [facility], [place] [address] [email or web address] Historical LMR Provider 03/31/17 documented as of this encounter Additional Source Comments The information contained in this document represents components of the legal health record. It is not the complete legal health record.[facility]
--- OUTSIDE RECORDS SUMMARY | 2025-02-19 11:20 | XMS_ITS | Encounter Summary ---
Author Organization [facility] Address [address] [facility] [address] [place] [address] Phone Care Team Providers Care Portrait Painter Name Role Phone Rhiannon Low Carole SPECIAL EQUIPMENT TECHNICIAN Unavailable [phone] Helena Lobo NP Unavailable [phone] Marina Cavanaugh FISH HATCHERY INSPECTOR Unavailable [phone] Angélica Salgado MD Unavailable [phone] Winston Swanson DO Primary Care Provider [phone] Reason for Referral * MRI/CAT Scan - Closed Specialty Diagnoses / Procedures Referred By Contamber t Referred To Contact Radiology Diagnoses Abdominal pain, generalized Abdominal pain, LUQ (left upper quadrant) Abdominal pain, RUQ (right upper quadrant) Procedures CT Abdomen/Pelvis CHG CT SCAN,ABDOMENT AND PELVIS,W CONTRAST CHG CT SCAN,ABDOMENT AND PELVIS,W/O CONTRAST CHG CT SCAN,ABDOMENT AND PELVIS,COMBO Michelle Raphael NP [address] [place] [address] Phone: tel: fax: Referral ID Status Reason Start Date Expiration Date Visits Re quested Visits Authorized [id number] Closed 07/01/2023 09/29/2023 1 1 Encounter Details Date Type Department Care Team (Latest Contact Info) Description 07/01/2023 Transcribe Orders Virtual Department [address] [place] [address] Michelle Raphael NP [address] [place] [address] Abdominal pain, generalized (Primary Dx); Abdominal pain, LUQ (left upper quadrant); Abdominal pain, RUQ (right upper quadrant) Social History Tobacco Use Types Packs/Day Years [...] high school, GED, job training, learning the Samoan language, technical skills, or developing parenting skills)? [...] st Contact Info) Description 12/09/2024 Procedure Pass [address] [place] [address] 06/22/2025 10:45 AM EST Appointment [facility], Bone [address] [address] Winston Swanson, DO [address] [facility], [address] [place] [address] [email or web address] 07/27/2025 10:30 AM EST Appointment [address] [place] [address] Winston Swanson, DO [address] [facility], [address] [place] [address] [email or web address] documented as of this encounter Results * CT ABDOMEN/PELVIS WITH CONTRAST (08/08/2023 9:30 AM EST) Anatomical Region Laterality Modality Abdomen, Pelvis Computed Tomogra phy 08/08/2023 2:13 PM EST Impressions 08/08/2023 2:24 PM EST 1. No acute abnormality in the abdomen or pelvis to explain etiology of patient's symptoms. 2. 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 Narrative 08/08/2023 2:[address] ABDOMEN/PELVIS WITH CONTRAST Referring clinician's provided indication for this examination in [facility]: Outside Radiology Order; Abdomen Pain Generalized; Abdomen Pain (LUQ); Abdomen Pain (RUQ) TECHNIQUE: Multidetector-row CT of the abdomen and pelvis was performed after administration of intravenous contrast using tailored dose modulation techniques. Images were reconstructed in the axial, coronal, and sagittal planes. COMPARISON: There are no prior studies available for comparison FINDINGS: Lower Chest: No consolidation or pleural effusions. Liver: There is a subcentimeter low-density lesion at the hepatic dome, too small to characterize but statistically most likely to represent a cyst or hemangioma. Biliary: No biliary ductal dilatation. Spleen: No splenomegaly or focal lesions. Pancreas: No masses or ductal dilatation. Adrenal Glands: No nodules. Kidneys/Ureters: No solid masses, stones, or hydronephrosis. Bowel: Normal appendix. The sigmoid colon is redundant. A moderate volume of stool is present throughout the colon.. No distention or wall thickening. Peritoneum/Retroperitoneum: There is slightly more circumscribed fat density at the epigastrium immediately anterior to the aorta measuring 1.7 x 2.3 cm which may reflect an incidental mesenteric lipoma. There is no associated heterogeneity or surrounding inflammatory stranding. No pneumoperitoneum or free fluid. Lymph Nodes: No lymphadenopathy. Pelvic Organs/Bladder: The urinary bladder is mildly distended. No mural thickening. Vessels: No abdominal aortic aneurysm. Bones/Soft Tissues: Subcentimeter fat-containing umbilical hernia. Mild degenerative changes at L4-5. No destructive osseous lesions. Procedure Note Zainab Bhatti MD - 08/08/2023 CT ABDOMEN/PELVIS WITH CONTRAST Referring clinician's provided indication for this examination in Epic:Outside Radiology Order; Abdomen Pain Generalized; Abdomen Pain (LUQ);Abdomen Pain (RUQ) TECHNIQUE: Multidetector-row CT of the abdomen and pelvis was performedafter administration of intravenous contrast using tailored dosemodulation techniques. Images were reconstructed in the axial, coronal,and sagittal planes. COMPARISON: There are no prior studies available for comparison FINDINGS: Lower Chest: No consolidation or pleural effusions. Liver: There is a subcentimeter low-density lesion at the hepatic dome,too small to characterize but statistically most likely to represent acyst or hemangioma. Biliary: No biliary ductal dilatation. Spleen: No splenomegaly or focal lesions. Pancreas: No masses or ductal dilatation. Adrenal Glands: No nodules. Kidneys/Ureters: No solid masses, stones, or hydronephrosis. Bowel: Normal appendix. The sigmoid colon is redundant. A moderate volumeof stool is present throughout the colon.. No distention or wallthickening. Peritoneum/Retroperitoneum: There is slightly more circumscribed fatdensity at the epigastrium immediately anterior to the aorta measuring 1.7x 2.3 cm which may reflect an incidental mesenteric lipoma. There is noassociated heterogeneity or surrounding inflammatory stranding. Nopneumoperitoneum or free fluid. Lymph Nodes: No lymphadenopathy. Pelvic Organs/Bladder: The urinary bladder is mildly distended. No muralthickening. Vessels: No abdominal aortic aneurysm. Bones/Soft Tissues: Subcentimeter fat-containing umbilical hernia. Milddegenerative changes at L4-5. No destructive osseous lesions. IMPRESSION: 1. No acute abnormality in the abdomen or pelvis to explain etiology ofpatient's symptoms. 2. Slightly more circumscribed fat density at the epigastrium immediatelyanterior to the aorta measuring 1.7 x 2.3 cm which may reflect anincidental mesenteric lipoma.. Michelle Raphael SHEET ROCK INSTALLER IMG CT ABD/PELVIS Final R esult documented in this encounter Visit Diagnoses Diagnosis Abdominal pain, generalized- Primary Abdominal pain, LUQ (left upper quadrant) Abdominal pain, left upper quadrant Abdominal pain, RUQ (right upper quadrant) Abdominal pain, right upper quadrant Abdominal pain, generalized Abdominal pain, LUQ (left upper quadrant) Abdominal pain, left upper quadrant Abdominal pain, RUQ (right upper quadrant) Abdominal pain, right upper quadrant documented in this encounter Care Teams Portrait Painter Relationship Specialty Start Date End Date [place] Swanson DO [address] [place] [address], [address] [place] [address] [email or web address] PCP - General Family Medicine 05/02/22 Rhiannon Low CNP [address] [place] [address], 2nd [place] [address] Historical LMR Provider 03/31/17 Helena Lobo NP [address] [place] [address] Historical LMR Provider 03/31/17 Marina Cavanaugh FNP [address] [place] [address] 7 [place] [address] Historical LMR Provider 03/31/17 Angélica Salgado MD [address] [place] [address] [facility], [facility] [place] [address] Historical LMR Provider 03/31/17 documented as of this encounter Additional Source Comments The information contained in this document represents components of the legal health record. It is not the complete legal health record.[facility]
--- OUTSIDE RECORDS SUMMARY | 2025-02-19 11:20 | XMS_ITS | Encounter Summary ---
Author Organization [facility] Address [address] [employer] [facility] [address] [place] [address] Phone Care Team Providers Care Public Defender Name Role Phone Rhiannon Low Carole FERRULER Unavailable [phone] Helena Lobo QUALITATIVE EXECUTIVE RESEARCHER Unavailable [phone] Marina Cavanaugh REFRIGERATED NATIONAL TRUCK DRIVER Unavailable [phone] Angélica Salgado MD Unavailable [phone] [place] Swanson DO Primary Care Provider [phone] Encounter Details Date Type Department Care Team (Late st Contact Info) Description 07/01/2023 Procedure Pass [facility], Ct Scan - [address] [address] Social History Tobacco Use Types Packs/Day Years [...] high school, GED, job training, learning the Argentine language, technical skills, or developing parenting skills)? [...] st Contact Info) Description 12/09/2024 Procedure Pass [address] [place] [address] 06/22/2025 10:45 AM EST Appointment [facility], Bone Density - [address] [address] [place] Swanson, DO [address] [facility], [address] [place] [address] 07/27/2025 10:30 AM EST Appointment [address] [place], [place] [address] [place] Swanson DO [address] [facility] 7 [place] [address] documented as of this encounter Visit Diagnoses Not on filedocumented in this encounter Care Teams Public Defender Relationship Specialty Start Date End Date [place] Swanson DO [address] [facility] 7 [place] [address] PCP - General Family Medicine 05/02/22 Rhiannon Low, CHAKA [address] [place] [address] Historical LMR Provider 03/31/17 Helena Lobo NP [address] [place] [address] Historical LMR Provider 03/31/17 Marina Cavanaugh FNP [address] [place] [address] Historical LMR Provider 03/31/17 Angélica Salgado MD [address] [place] [address] [facility] [place] [address] Historical LMR Provider 03/31/17 documented as of this encounter Additional Source Comments The information contained in this document represents components of the legal health record. It is not the complete legal health record.[facility]
--- OUTSIDE RECORDS SUMMARY | 2025-02-19 11:20 | XMS_ITS | Encounter Summary ---
Author Organization [facility] Address [address] [facility] [address] [place] [address] Phone Care Team Providers Care Sand Tester Name Role Phone Rhiannon Low CNP Unavailable Darling Tolentino MD Unavailable Claudia Sterling MOLD SETTER Unavailable Carole Luna DO Unavailable Helena Lobo MOLD SETTER Unavailable Marina Cavanaugh TAR DISTRIBUTOR OPERATOR Unavailable Sylvester Maddox MD Unavailable Amanda Brown DO Unavailable Brendon Kraft MD Unavailable Angélica Salgado MD Unavailable Josep Razo MD Unavailable Rhiannon Low DRUM REEL CUTTER Unavailable [place] Swanson DO Primary Care Provider Rhiannon Low CNP Primary Care Provider [phone] [place] Swanson DO Primary Care Provider [phone] Encounter Details Date Type Department Care Team (Late st Contact Info) Description 11/24/2018 Ancillary Orders [facility] [address] [place] [address] Rhiannon Low, DRUM REEL CUTTER 15 [facility], 2nd [place] [address] [email or web address] Breast screening Social History Tobacco Use Types Packs/Day Years Used Date Smoking Tobacco: Never Smokeless Tobacco: Never Child or Family Care Answer Date Record ed Do you have problems with on e of the following making it difficult for you to work, study, or receive health care? No 09/18/2018 Education Answer Date Recorded Are you interested in help w ith more adult education (for example, completing high school, GED, job training, learning the Arabic language, technical skills, or developing parenting skills)? [...] st Contact Info) Description 12/09/2024 Procedure Pass [facility] - [address] [place] [address] 06/22/2025 10:45 AM EST Appointment [facility], Bone Density - [address] [address] [place] Swanson DO [address] [facility], [address] [place] [address] 07/27/2025 10:30 AM EST Appointment [address] [place] [address] [place] Swanson DO [address] [facility], [address] [place] [address] [email or web address] documented as of this encounter Visit Diagnoses Diagnosis Breast screening Breast screening, unspecified documented in this encounter Additional Health Concerns Infection Onset Date Last Indicated Resolved Time CoV-Risk 01/08/2021 01/08/2021 01/18/2021 1:26 AM EDT CoV-Exposed Comment:Recent close contact documented in the Travel/Symptom Screening Form 04/06/2022 04/06/2022 04/17/2022 1:[address] documented as of this encounter Care Teams Sand Tester Relationship Specialty Start Date End Date Rhiannon Low CNP [address] [address] [email or web address] PCP - Family Medicine 09/05/17 08/15/22 [place] Swanson DO [address] [place] [address], [facility] [address] [place] [address] [email or web address] PCP - General Family Medicine 11/05/19 02/18/22 Rhiannon Low CNP [address] [address] [email or web address] PCP - General Family Medicine 02/19/22 05/01/22 [place] Swanson DO [address] [place] [address], [address] [place] [address] [email or web address] PCP - General Family Medicine 05/02/22 Rhiannon Low, DRUM REEL CUTTER [address] [place] [address], [address] [place] [address] Historical LMR Provider 03/31/17 Darling Tolentino MD [address] [place] [address] [email or web address] Historical LMR Provider 03/31/17 06/17/21 Claudia Sterling NP [address] [place] [address] Historical LMR Provider 03/31/17 2 Carole Luna DO [address] [place] [address] Historical LMR Provider 03/31/17 06/17/21 Hleena Lobo MOLD SETTER [address] [place] [address] Historical LMR Provider 03/31/17 Marina Cavanaugh FNP [address] [place] [address] [email or web address] Historical LMR Provider 03/31/17 Sylvester Maddox MD [address] [place] [address] Historical LMR Provider 03/31/17 06/17/21 [place] [address] Historical LMR Provider 03/31/17 2 Brendon Kraft MD [address] [place] [address] [address] [place] [phone] Historical LMR Provider 03/31/17 2 Angélica Salgado MD [address] [place] [address] [facility], [place] [address] [email or web address] Historical LMR Provider 03/31/17 Josep Razo MD [address] [place], [place] [address] [place] [address] [email or web address] Historical LMR Provider 03/31/17 06/17/21 documented as of this encounter Additional Source Comments The information contained in this document represents components of the legal health record. It is not the complete legal health record.[facility]
--- OUTSIDE RECORDS SUMMARY | 2025-02-19 11:20 | XMS_ITS | Encounter Summary ---
Author Organization [facility] Address [address] [facility] [address] [place] [address] Phone Care Team Providers Care Commercial Journeyman Electrician Name Role Phone Rhiannon Low CNP Unavailable [phone] Darling Tolentino MD Unavailable Claudia Sterling HEAD OF CONSERVATION Unavailable Carole Luna DO Unavailable Helena Lobo HEAD OF CONSERVATION Unavailable Marina Cavanaugh PAN WASHER HAND Unavailable Sylvester Maddox MD Unavailable Amanda Brown DO Unavailable Brendon Kraft MD Unavailable Angélica Salgado MD Unavailable Josep Razo MD Unavailable Rhiannon Low LINEN ROOM WORKER Unavailable [place] Swanson DO Primary Care Provider Rhiannon Low CNP Primary Care Provider [phone] [place] Swanson DO Primary Care Provider Encounter Details Date Type Department Care Team (Latest Contact Info) Description 04/14/2020 Transcribe Orders Virtual Department 30 [place] [address] José Miguel Mccallum MD [address] [address] [email or web address] Pre-operative laboratory examination (Primary Dx) Social History Tobacco Use Types [...] high school, GED, job training, learning the Faroese language, technical skills, or developing parenting skills)? [...] st Contact Info) Description 12/09/2024 Procedure Pass [place] [facility] - [address] [place] [address] 06/22/2025 10:45 AM EST Appointment [facility] Bone Density - [facility] 30 [place] [address] [place] Swanson, DO 234 [facility], [address] [place] [address] 07/27/2025 10:30 AM EST Appointment [facility] - [address] [place] [address] [place] Swanson, DO 234 [facility], [facility] 7 [place] [address] documented as of this encounter Results * COVID-19 PCR Order (04/19/2020 10:40 AM EST) Specimen Source NASOPHARYNGEAL SWAB (HEAD OF CONSERVATION) [facility] COVID-19 Comment [id number] [facility] COVID Testing Status In-house testing being performed [facility] Other 04/19/2020 10:4 0 AM EST 04/19/2020 11:19 AM EST us José Miguel Mccallum MD BODY FLUIDS AND STOOLS ORDER DANIEL Final Result [facility] [address] [place] [address] documented in this encounter Visit Diagnoses Diagnosis Pre-operative laboratory examination- Primary Pre-procedural laboratory examination documented in this encounter Additional Health Concerns Infection Onset Date Last Indicated Resolved Time CoV-Risk 01/08/2021 01/08/2021 01/18/2021 1:26 AM EDT CoV-Exposed Comment:Recent close contact documented in the Travel/Symptom Screening Form 04/06/2022 04/06/2022 04/17/2022 1:[address] documented as of this encounter Care Teams Commercial Journeyman Electrician Relationship Specialty Start Date End Date Rhiannon Low CNP 15 [facility], 2nd [place] [address] [email or web address] PCP - Family Medicine 09/05/17 08/15/22 [place] Swanson DO [address] [place] [address] [email or web address] PCP - General Family Medicine 11/05/19 02/18/22 Rhiannon Low LINEN ROOM WORKER [address] [place] [address] [email or web address] PCP - General Family Medicine 02/19/22 05/01/22 [place] Swanson DO [address] [place] [address] [email or web address] PCP - General Family Medicine 05/02/22 Rhiannon Low, LINEN ROOM WORKER [address] [place] [address] [email or web address] Historical LMR Provider 03/31/17 Darling Tolentino MD [address] [place] [address] [email or web address] Historical LMR Provider 03/31/17 06/17/21 Claudia Sterling HEAD OF CONSERVATION 1 [place] [address] Historical LMR Provider 03/31/17 2 Carole Luna DO [address] [place] [address] [email or web address] Historical LMR Provider 03/31/17 06/17/21 Helena Lobo NP 30 [place] [address] Historical LMR Provider 03/31/17 Marina Cavanaugh FNP [address] [place] [address] 7 [place] [address] Historical LMR Provider 03/31/17 Sylvester Maddox MD [address] [place] [address] 7 [place] [address] Historical LMR Provider 03/31/17 06/17/21 Amanda Brown DO [address] [place] [address] Historical LMR Provider 03/31/17 2 Brendon Kraft MD [address] [place] [phone] Historical LMR Provider 03/31/17 2 Angélica Salgado MD [address] [place] [address] [facility], [place] [address] [email or web address] Historical LMR Provider 03/31/17 Josep Razo MD [address] [place] [address] [address] [place] [phone] [email or web address] Historical LMR Provider 03/31/17 06/17/21 documented as of this encounter Additional Source Comments The information contained in this document represents components of the legal health record. It is not the complete legal health record.[facility]
--- OUTSIDE RECORDS SUMMARY | 2025-02-19 11:22 | XMS_ITS | Encounter Summary ---
Author Organization [facility] Address [address] [facility] [address] [place] [address] Phone Care Team Providers Care Linux System Engineer Name Role Phone Rhiannon Low CNP Unavailable Darling Tolentino MD Unavailable Claudia Sterling MEDICAL OFFICE SUPERVISOR Unavailable Carole Luna DO Unavailable Helena Lobo MEDICAL OFFICE SUPERVISOR Unavailable Marina Cavanaugh HUMAN GEOGRAPHY FACULTY MEMBER Unavailable Sylvester Maddox MD Unavailable Amanda Brown DO Unavailable Brendon Kraft MD Unavailable Angélica Salgado MD Unavailable Josep Razo MD Unavailable Rhiannon Low CONTRACT ADMINISTRATIVE ASSISTANT Unavailable [place] Swanson DO Primary Care Provider Rhiannon Low CNP Primary Care Provider [phone] [place] Swanson DO Primary Care Provider [phone] Encounter Details Date Type Department Care Team (Late st Contact Info) Description 11/24/2018 Ancillary Orders Virtual Department 30 [place] [address] Rhiannon Low, CONTRACT ADMINISTRATIVE ASSISTANT [facility], 2nd [place] [address] Breast screening Social History Tobacco Use Types [...] high school, GED, job training, learning the Welsh language, technical skills, or developing parenting skills)? [...] Encounters Date Type Department Care Team (Late Contact Info) Description 12/09/2024 Procedure Pass [facility] - [address] [place] [address] 06/22/2025 10:45 AM EST Appointment [facility], Bone Density - [address] [address] [place] Swanson, DO 234 [facility], [address] [place] [address] [email or web address] 07/27/2025 10:30 AM EST Appointment [address] [place] [address] [place], DO [address] [facility], [address] [place] [address] [email or web address] documented as of this encounter Results * (ABNORMAL) BI MAMMOGRAM SCREENING WITH TOMOSYNTHESIS WITH CAD (BILATERAL) (12/02/2018 11:04 AM EDT) Anatomical Region Laterality Modality Breast Left, Breast Right, Breast Bilateral Bila teral Mammography 12/02/2018 4:24 PM EDT Impressions 12/02/2018 4:34 PM EDT Incomplete study, BI-RADS 0. Questioned area of distortion and asymmetry superior RIGHT breast. Additional imaging recommended: ML with uriel, spot compression with uriel in MLO projection and ultrasound. LEFT RECOMMENDATION DATE: Annual Mammography Screening RIGHT RECOMMENDATION DATE: 1 Month Additional Imaging The results will be sent to the patient. Patient will be contacted by phone to return for additional imaging. BI-RADS CATEGORY: 0 - Incomplete. Need additional imaging evaluation. BREAST DENSITY: The breast tissue is extremely dense, an appearance which could obscure a lesion on mammography. POS - [id number] Narrative 12/02/2018 4:34 PM EDT BI MAMMOGRAM SCREENING WITH TOMOSYNTHESIS WITH CAD (BILATERAL) HISTORY: Screening. COMPARISON: Prior mammograms, including most recent 11/21/2017 and dating back to 11/30/2009. TECHNIQUE: Digital breast tomosynthesis was performed in CC and MLO projections. Reconstructed 2-D C-views generated from the tomosynthesis images. Images interpreted in conjunction with R-2 Image Try Out Person computer-aided detection (CAD). FINDINGS: BREAST DENSITY: The breast parenchyma is extremely dense, which lowers the sensitivity of mammography. In the superior right breast, 6 cm from the nipple, mid to posterior depth, there is a questioned area of distortion and asymmetry. Stable scattered bilateral benign microcalcifications. No suspicious developing masses or architectural distortion in the left breast. Stable asymmetry of breast size. Procedure Note Nel Mabry MD - 12/02/2018 BI MAMMOGRAM SCREENING WITH TOMOSYNTHESIS WITH CAD (BILATERAL) HISTORY: Screening. COMPARISON: Prior mammograms, including most recent 11/21/2017 and datingback to 11/30/2009. TECHNIQUE: Digital breast tomosynthesis was performed in CC and MLOprojections. Reconstructed 2-D C-views generated from the tomosynthesisimages. Images interpreted in conjunction with R-2 Image Checkercomputer-aided detection (CAD). FINDINGS: BREAST DENSITY: The breast parenchyma is extremely dense, which lowers thesensitivity of mammography. In the superior right breast, 6 cm from the nipple, mid to posteriordepth, there is a questioned area of distortion and asymmetry. Stablescattered bilateral benign microcalcifications. No suspicious developingmasses or architectural distortion in the left breast. Stable asymmetry ofbreast size. IMPRESSION: Incomplete study, BI-RADS 0. Questioned area of distortion and asymmetrysuperior RIGHT breast. Additional imaging recommended: ML with uriel, spot compression with tomoin MLO projection and ultrasound. LEFT RECOMMENDATION DATE: Annual Mammography Screening RIGHT RECOMMENDATION DATE: 1 Month Additional Imaging The results will be sent to the patient. Patient will be contacted byphone to return for additional imaging. BI-RADS CATEGORY: 0 - Incomplete. Need additional imaging evaluation. BREAST DENSITY: The breast tissue is extremely dense, an appearance whichcould obscure a lesion on mammography. POS - CDHMAM2 Rhiannon Low CONTRACT ADMINISTRATIVE ASSISTANT IMG MG EXAMS Final Resu lt documented in this encounter Visit Diagnoses Diagnosis Breast screening Breast screening, unspecified Breast screening Breast screening, unspecified documented in this encounter Additional Health Concerns Infection Onset Date Last Indicated Resolved Time CoV-Risk 01/08/2021 01/08/2021 01/18/2021 1:26 AM EDT CoV-Exposed Comment:Recent close contact documented in the Travel/Symptom Screening Form 04/06/2022 04/06/2022 04/17/2022 1:[address] documented as of this encounter Care Teams Linux System Engineer Relationship Specialty Start Date End Date Devante Rhiannon Lam CNP [address] [address] PCP - Family Medicine 09/05/17 08/15/22 [place] Swanson DO [address] [place] [address] [email or web address] PCP - General Family Medicine 11/05/19 02/18/22 Rhiannon Low CNP [address] [place] [address] PCP - General Family Medicine 02/19/22 05/01/22 [place] Swanson DO [address] [place] [address] [email or web address] PCP - General Family Medicine 05/02/22 Rhiannon Low CNP [address] [place] [address] Historical LMR Provider 03/31/17 Darling Tolentino MD [address] [place] [address] 7 [place] [address] Historical LMR Provider 03/31/17 06/17/21 Claudia Sterling MEDICAL OFFICE SUPERVISOR 1 [place] [address] Historical LMR Provider 03/31/17 2 Hao Lunassnilson Flores DO [address] [place] [address] 7 [place] [address] Historical LMR Provider 03/31/17 06/17/21 Helena Lobo MEDICAL OFFICE SUPERVISOR 30 [place] [address] Historical LMR Provider 03/31/17 Marina Cavanaugh FNP [address] [place] [address] 7 [place] [address] [email or web address] Historical LMR Provider 03/31/17 Sylvester Maddox MD [address] [place] [address] 7 [place] [address] Historical LMR Provider 03/31/17 06/17/21 Amanda Brown DO [address] [place] [address] Historical LMR Provider 03/31/17 2 Brendon Kraft MD [address] [place] [address] [place] [phone] Historical LMR Provider 03/31/17 2 Angélica Salgado MD [address] [place] [address] [facility], [place] [address] Historical LMR Provider 03/31/17 Josep Razo MD [address] [place], [place] [address] [place] [phone] [email or web address] Historical LMR Provider 03/31/17 06/17/21 documented as of this encounter Additional Source Comments The information contained in this document represents components of the legal health record. It is not the complete legal health record.[facility]
--- OUTSIDE RECORDS SUMMARY | 2025-02-19 11:22 | XMS_ITS | Encounter Summary ---
Author Organization [facility] Address [address] [facility] [address] [place] [id number] Phone Care Team Providers Care Solutions Developer Name Role Phone Rhiannon Low CNP Unavailable Darling Tolentino MD Unavailable Claudia Sterling MOLD BURNER Unavailable Carole Luna DO Unavailable Helena Lobo MOLD BURNER Unavailable Marina Cavanaugh SHIRT CLOSER Unavailable Sylvester Maddox MD Unavailable Amanda Brown DO Unavailable Brendon Kraft MD Unavailable Angélica Salgado MD Unavailable Josep Razo MD Unavailable Rhiannon Low PROGRAM STRATEGIST Unavailable [place] Swanson DO Primary Care Provider Rhiannon Low CNP Primary Care Provider [phone] [place] Swanson DO Primary Care Provider [phone] Encounter Details Date Type Department Care Team (Late st Contact Info) Description 12/03/2018 Ancillary Orders [facility] Medicine [address] [place] [address] Rhiannon Low, PROGRAM STRATEGIST [address] [facility], 2nd [place] [address] [email or web address] Abnormal mammogram Social History Tobacco Use Types Packs/Day Years [...] high school, GED, job training, learning the Kiswahili language, technical skills, or developing parenting skills)? [...] (Late Contact Info) Description 12/09/2024 Procedure Pass [facility] - [address] [place] [address] 06/22/2025 10:45 AM EST Appointment [facility], [facility] - [address] [address] Sah[place], [place] F, DO [address] [place], [address] [place] [address] [email or web address] 07/27/2025 10:30 AM EST Appointment [address] [place], [place] [address] [place] Swanson, DO [address] [facility], [address] [place] [address] [email or web address] documented as of this encounter Results * BI US BREAST LIMITED (RIGHT) (12/15/2018 1:40 PM EDT) Anatomical Region Laterality Modality Breast Right, Breast Bilateral Right U ltrasound 12/15/2018 1:35 PM EDT Impressions 12/15/2018 1:43 PM EDT No finding of concern on additional imaging. Screening mammogram in one year recommended in follow-up. Findings and recommendations are relayed to the patient at conclusion of sonography. BI-RADS CATEGORY: 2 - Benign finding. POS - CDHMAMA Edited by: Isatu Ta on 12/15/2018 1:40 PM Narrative 12/15/2018 1:43 PM EDT Additional views of the right breast are obtained to supplement screening examination of December 02. Comparison made to other prior as well. The additional views include full-field true lateral view and spot compression right MLO view, both with tomosynthesis. Breast ultrasound is also obtained and reported here. No persistent areas of distortion suggested. No masses. No sonographic finding of concern on subsequent sonography, scanning through the upper aspect of the breast. Scattered calcifications demonstrate no worrisome change. Procedure Note Moe Kern MD - 12/15/2018 Additional views of the right breast are obtained to supplement screeningexamination of December 02. Comparison made to other prior as well. Theadditional views include full-field true lateral view and spot compressionright MLO view, both with tomosynthesis. Breast ultrasound is alsoobtained and reported here. No persistent areas of distortion suggested. No masses. No sonographicfinding of concern on subsequent sonography, scanning through the upperaspect of the breast. Scattered calcifications demonstrate no worrisomechange. IMPRESSION: No finding of concern on additional imaging. Screening mammogram in oneyear recommended in follow-up. Findings and recommendations are relayed tothe patient at conclusion of sonography. BI-RADS CATEGORY: 2 - Benign finding. POS - CDHMAMA Edited by: Isatu Ta on 12/15/2018 1:40 PM us Rhiannon Low PROGRAM STRATEGIST IMG US BREAST Final Resu lt * BI MAMMOGRAM DIAGNOSTIC WITH TOMOSYNTHESIS WITH CAD (RIGHT) (12/15/2018 1:16 PM EDT) Anatomical Region Laterality Modality Breast Right, Breast Bilateral Right M ammography 12/15/2018 1:35 PM EDT Impressions 12/15/2018 1:43 PM EDT No finding of concern on additional imaging. Screening mammogram in one year recommended in follow-up. Findings and recommendations are relayed to the patient at conclusion of sonography. BI-RADS CATEGORY: 2 - Benign finding. POS - CDHMAMA Edited by: Isatu Ta on 12/15/2018 1:40 PM Narrative 12/15/2018 1:43 PM EDT Additional views of the right breast are obtained to supplement screening examination of December 02. Comparison made to other prior as well. The additional views include full-field true lateral view and spot compression right MLO view, both with tomosynthesis. Breast ultrasound is also obtained and reported here. No persistent areas of distortion suggested. No masses. No sonographic finding of concern on subsequent sonography, scanning through the upper aspect of the breast. Scattered calcifications demonstrate no worrisome change. us Rhiannon Low PROGRAM STRATEGIST IMG MG EXAMS Final Resu lt documented in this encounter Visit Diagnoses Diagnosis Abnormal mammogram Abnormal mammogram, unspecified Abnormal mammogram Abnormal mammogram, unspecified Abnormal mammogram Abnormal mammogram, unspecified documented in this encounter Additional Health Concerns Infection Onset Date Last Indicated Resolved Time CoV-Risk 01/08/2021 01/08/2021 01/18/2021 1:26 AM EDT CoV-Exposed Comment:Recent close contact documented in the Travel/Symptom Screening Form 04/06/2022 04/06/2022 04/17/2022 1:[address] documented as of this encounter Care Teams Solutions Developer Relationship Specialty Start Date End Date Rhiannon Low CNP [address] [address] PCP - Family Medicine 09/05/17 08/15/22 [place] Swanson DO [address] [place] [id number] [email or web address] PCP - General Family Medicine 11/05/19 02/18/22 Rhiannon Low CNP [address] [address] PCP - General Family Medicine 02/19/22 05/01/22 [place] Swanson DO [address] [place] [address] PCP - General Family Medicine 05/02/22 Rhiannon Low CNP [address] [place] [address] Historical LMR Provider 03/31/17 Darling Tolentino MD [address] [place] [id number] [email or web address] Historical LMR Provider 03/31/17 06/17/21 Claudia Sterling NP [address] [place] [address] Historical LMR Provider 03/31/17 2 Carole Luna DO [address] [place] [phone] Historical LMR Provider 03/31/17 06/17/21 Helena Lobo MOLD BURNER [address] [place] [address] Historical LMR Provider 03/31/17 Marina Cavanaugh FNP [address] [place] [address] [email or web address] Historical LMR Provider 03/31/17 Sylvester Maddox MD [address] [place] [address] Historical LMR Provider 03/31/17 06/17/21 Amanda Brown DO [address] [place] [id number] Historical LMR Provider 03/31/17 2 Brendon Kraft MD [address] [place] [phone] Historical LMR Provider 03/31/17 2 Angélica Salgado MD [address] [place] [address] Orthopedics & Sports Medicine, [facility] [place] [address] [email or web address] Historical LMR Provider 03/31/17 Josep Razo MD [address] [place] [address] [address] [place] [phone] [email or web address] Historical LMR Provider 03/31/17 06/17/21 documented as of this encounter Additional Source Comments The information contained in this document represents components of the legal health record. It is not the complete legal health record.[facility]
== END 2025-02-19 10:59 | disposition home or self-care (01) ==
LOC: HO.HNS 10:01
PROVIDERS: Visit Provider Neurological Surgery
DX: M71.38 Other bursal cyst, other site (principal); M54.16 Radiculopathy, lumbar region
CPT/HCPCS: 99204